=== PATIENT | female | born 1955 | race Asian ===

== ENCOUNTER → 2018-11-04 09:02 | Outpatient (CLI) | payer OTHER, SELFPAY ==
--- NOTE | 2018-11-04 09:04 | DI.MG.S_ITS ---
UNILATERAL LEFT DIGITAL DIAGNOSTIC MAMMOGRAM 3D/2D: 11/04/2018 CLINICAL: Left breast sensation notes at lumpectomy site. Personal history of breast cancer. Comparison is made to exams dated: 03/12/2018 mammogram - [facility], 11/08/2015 mammogram, and 04/29/2013 mammogram - [facility]. There are scattered fibroglandular elements in left breast. There is stable postsurgical scarring in the upper outer left breast at middle to posterior depth. No other significant masses, calcifications, or other findings are seen in the breast. IMPRESSION: INCOMPLETE: NEEDS ADDITIONAL IMAGING EVALUATION Stable postsurgical scarring in the upper outer left breast at middle to posterior depth. A targeted ultrasound is recommended for further evaluation. This exam was interpreted at Station ID: [id number]. NOTE: For mammograms, a report in lay terms will be sent to the patient. Approximately 15% of breast malignancies will not be visualized mammographically. In the management of a palpable breast mass, a negative mammogram must not discourage biopsy of a clinically suspicious lesion. Electronically Signed By: Wilfrido Willard M.D. ecl/:11/05/2018 08:08:04 Entry: - 11/05/2018 08:08:04 letter sent: Need Ultrasound ACR BI-RADS Category 0: Incomplete [id number]
== END ==
PROVIDERS: PCP Family Medicine; Visit Provider Family Medicine
DX: R92.8 Other abnormal and inconclusive findings on diagnostic imaging of breast (principal); N64.4 Mastodynia; Z85.3 Personal history of malignant neoplasm of breast
CPT/HCPCS: 77065; G0279

== ENCOUNTER → 2019-01-01 12:15 | Outpatient (CLI) | payer OTHER, SELFPAY ==
--- NOTE | 2019-01-01 12:23 | DI.US.S_ITS ---
ULTRASOUND OF LEFT BREAST: 01/01/2019 CLINICAL: Left breast lumpectomy (2002) site 'sensation' months ago; sensation now gone. Comparison is made to exams dated: 11/04/2018 mammogram, 03/12/2018 mammogram - [facility], 11/08/2015 mammogram, 04/29/2013 mammogram, 04/29/2013 mammogram, and 05/09/2011 mammogram - [facility]. Real-time ultrasound of the left breast was performed on the areas of interest. Vazquez scale images of the real-time examination were reviewed. IMPRESSION: NEGATIVE There is no sonographic evidence of malignancy. There is no mammographic or sonographic abnormality seen in the left breast to correspond with the area of clinical concern, however, clinical followup is recommended. Of note, the patient states the abnormal sensation she previously felt in the left breast in the area of interest has resolved. A 1 year screening mammogram is recommended. This exam was interpreted at Station ID: [id number]. SUMMARY: Electronically Signed By: Pratima menon/:01/01/2019 13:34:03 letter sent: Clinical Evaluation Ultrasound BI-RADS: 1 Negative
== END ==
PROVIDERS: PCP Family Medicine; Visit Provider Family Medicine
DX: R92.8 Other abnormal and inconclusive findings on diagnostic imaging of breast (principal)
CPT/HCPCS: 76642

== ENCOUNTER → 2019-02-13 08:19 | Outpatient (CLI) | payer OTHER, SELFPAY ==
[2019-02-13 08:44] LABS: Add Manual Diff / Slide Review NO; Basophils Absolute Auto 100 /uL (0-100); Basophils Percent Auto 1.2 % (0-2); Eosinophils Absolute Auto 300 /uL (0-450); Eosinophils Percent Auto 6.2 % (2-4); Hemoglobin 14.5 g/dL (12.0-16.0); Lymphocytes Absolute Auto 1700 /uL (1100-4500); Lymphocytes Percent Auto 36.6 % (25-40); Mean Corpuscular HGB Conc 33.1 % (30-36); Mean Corpuscular Hemoglobin 29.2 PG (26-34); Mean Corpuscular Volume 88.5 fL (80-100); Monocytes Absolute Auto 500 /uL (0-900); Monocytes Percent Auto 10.3 % (3-14); Neutrophils Absolute Auto 2100 /uL (1500-7000); Neutrophils Percent Auto 45.7 % (50-75); Platelet Count 504 X10^3/uL (150-400); Red Blood Cell Count 4.97 X10^6/uL (4.0-5.2); Red Cell Distribution Width 13.6 % (11.6-14.8); White Blood Cell Count 4.6 X10^3/uL (4.5-11.0)
[2019-02-13 09:19] LABS: Alanine Aminotransferase 37 IU/L (9-52); Albumin 4.5 g/dL (3.5-5.0); Albumin Globulin Ratio 1.5 (1.0-2.8); Alkaline Phosphatase 55 U/L (38-126); Aspartate Aminotransferase 32 IU/L (14-36); Bilirubin Total 0.6 mg/dL (0.2-1.3); Blood Urea Nitrogen 14 mg/dL (7-17); Calcium 9.8 mg/dL (8.4-10.2); Carbon Dioxide 29 mmol/L (22-32); Chloride 104 mmol/L (98-107); Cholesterol 217 mg/dL (140-199); Estimated Glomerular Filt Rate > 60.0 mL/min (>60); Glucose 102 mg/dL (80-110); HDL Cholesterol 95 mg/dL (40-60); HEMOLYSIS < 15 (0-50); LDL Cholesterol Calculated 109 mg/dL (<100); Potassium 5.2 mmol/L (3.4-5.1); Sodium 140 mmol/L (137-145); Total Protein 7.5 g/dL (6.3-8.2); Triglycerides 66 mg/dL (35-150)
== END ==
PROVIDERS: PCP Family Medicine; Visit Provider Family Medicine
DX: Z00.00 Encounter for general adult medical examination without abnormal findings (principal); Z13.220 Encounter for screening for lipoid disorders
CPT/HCPCS: 36415; 80053; 80061; 85025

== ENCOUNTER 2019-02-26 18:34 | Inpatient (IN) | payer OTHER, SELFPAY ==
[2019-02-26] VITALS (11 sets, daily range): BP systolic 121–155; BP diastolic 72–92; PULSE 87–111; RESP 16–36; TEMP 37.1–38.7; O2SAT 84–97; BMI 22.6
--- NOTE | 2019-02-26 18:50 | DI.RAD.S_ITS ---
PROCEDURE: XR CHEST 1V INDICATIONS: sepsis TECHNIQUE: One view of the chest was acquired. COMPARISON: [facility], , CHEST 1VW (PORTABLE), 09/03/2013, 20:05. FINDINGS: Surgical changes and devices: Surgical clips are redemonstrated in the left chest wall. Lungs and pleura: Lungs are clear. No pleural effusions or pneumothorax. Mediastinum: Mediastinal contours appear normal. Heart size is normal. Bones and chest wall: No suspicious bony lesions. Overlying soft tissues appear unremarkable. IMPRESSION: 1. No acute cardiopulmonary disease. Dictated by: Armando Smith M.D. on 02/26/2019 at 20:47 Approved by: Armando Smith M.D. on 02/26/2019 at 20:48
--- NOTE | 2019-02-26 18:52 | ED.NAVMDI ---
HPI - Nausea/Vomiting/Diarrhea General Chief complaint: Nausea/Vomiting/Diarrhea Stated complaint: Weakness/diarrhea/fever/headache/increased hr Time Seen by Provider: 02/26/19 18:35 Source: patient Mode of arrival: wheelchair Limitations: no limitations History of Present Illness HPI Narrative: 63-year-old female nonsmoker with history of breast cancer presents to the emergency department with a friend in the chief complaint of fever, chills as well as nausea, vomiting and diarrhea for the past 3 days. She has become profoundly weak and also complains of a rapid heart rate. She is dizzy and lightheaded and required multiple people to help to get her out of the car and again up into the cart. She denies any travel any recent antibiotics or exposure to ill persons. MD complaint: nausea, vomiting and diarrhea Onset (ago): day(s) Description of Vomiting: watery Description of Diarrhea: watery Associated Abdominal Pain: No Severity: moderate Quality: cramping and aching Pain Consistency: intermittent Relieving factors: none Exacerbating factors: none Associated symptoms: myalgias, cough, fever/chills, nausea/vomiting, weakness and fatigue Related Data Home Medications Medication Instructions Recorded Confirmed No Known Home Medications 02/26/19 02/26/19 Allergies Allergy/AdvReac Type Severity Reaction Status Date / Time venom-honey bee Allergy Severe swelling, Verified 02/26/19 19:14 [BEE VENOM (HONEY BEE)] redness, shortness of breath Penicillins [PENICILLINS] Allergy Mild RASH Verified 02/26/19 19:14 Review of Systems Review of Systems ROS Unobtainable: All systems reviewed & are unremarkable except as noted in HPI and below Constitutional Reports body ache(s), Denies chills, Reports fever(s), Denies lethargy, Reports poor appetite and Reports weakness Eyes Denies change in vision, Denies eye discharge, Denies irritation and Denies loss of vision ENT Ears, Nose, Mouth, and Throat: Denies change in voice, Denies neck pain and Denies sore throat Cardiovascular Denies chest pain, Denies irregular heart rhythm, Denies lightheadedness, Denies palpitations, Reports dyspnea, Reports dyspnea on exertion and Denies orthopnea Respiratory Reports cough, Reports dyspnea, Reports dyspnea on exertion and Denies wheezing Gastrointestinal Gastrointestinal: Denies abdominal pain, Denies change in bowel habits, Reports diarrhea, Reports nausea and Reports vomiting Genitourinary Denies hematuria, Denies flank pain, Denies urinary incontinence and Denies urinary urgency Musculoskeletal Denies neck pain Integumentary/Breasts Denies pruritus, Denies erythema, Denies rash and Denies wounds Neurologic Denies confusion, Denies loss of vision and Reports weakness Psychiatric Denies anxiety, Denies confusion, Denies depression, Denies homicidal ideation and Denies suicidal ideation Endocrine Denies palpitations Hematologic/Lymphatic Denies easy bruising Allergic/Immunologic Denies wheezing PFSH Family History (Updated 05/15/16 @ 00:00 by Ursula Hicks DO) Father Osteoarthritis, unspecified osteoarthritis type, unspecified site Social History household members: none Smoking Status: Never smoker alcohol intake: current Family History (Updated 05/15/16 @ 00:00 by Ursula Hicks DO) Father Osteoarthritis, unspecified osteoarthritis type, unspecified site Social History household members: none Smoking Status: Never smoker alcohol intake: current Exam Narrative Exam Narrative: GENERAL: 63-year-old female who is obviously very ill, she is in respiratory distress with rapid shallow breathing, a wet sounding cough and requires the help of myself and a nurse to get her out of the car and then into the cart HEAD: Atraumatic. Normocephalic. No temporal or scalp tenderness. EYES: Pupils equal round and reactive. Extraocular motions intact. No scleral icterus. No injection or drainage. ENT: Nose without bleeding, purulent drainage or septal hematoma. Throat without erythema, tonsillar hypertrophy or exudate. Uvula midline. Airway patent. NECK: Trachea midline. No JVD or lymphadenopathy. Supple, nontender, no meningeal signs. CARDIOVASCULAR: Regular rate and rhythm without murmurs, gallops, or rubs. RESPIRATORY: obvious respiratory distress, use of accessory muscles, rhonchi B/L, coarse throughout GASTROINTESTINAL: Abdomen soft, non-tender, nondistended. No hepato-splenomegaly, or palpable masses. No guarding. EXTREMITIES: No clubbing, cyanosis, or edema. No joint tenderness, effusion, or edema noted. BACK: Nontender without deformity or crepitance. No flank tenderness. NEURO: AOx3. SKIN: No rash or erythema. Initial Vital Signs Initial Vital Signs: Vital Signs Respiratory Rate 36 H 02/26/19 18:35 Pulse Oximetry 84 L 02/26/19 18:35 Course Orders Ordered: ED Orders 02/26/19 18:50 XR chest 1V Stat Influenza A and B by PCR Rapid Stat 02/26/19 19:00 Blood Culture Stat 02/26/19 20:20 ABG [Arterial Blood Gas] Stat 02/26/19 20:55 Education, smoking cessation ONGOING 02/26/19 21:40 Lactate 4HR (Lactic Acid Rflx) Stat 02/27/19 05:00 Complete Blood Count AUTO DIFF Routine Comprehensive Metabolic Panel Routine Acetaminophen (Tylenol) 650 mg PO Q6HR PRN PRN Reason: As Needed for Fever/Mild Pain Last Admin: 02/26/19 21:55 Dose: 650 mg Enoxaparin Sodium (Lovenox) 30 mg SUBCUT DAILY SARAH BETH Dextrose/Sodium Chloride (Dextrose 5%-0.45% Ns) 1,000 mls @ 100 mls/hr IV CONT SARAH BETH Last Admin: 02/26/19 21:55 Dose: 100 mls/hr Ibuprofen (Advil) 600 mg PO Q6HR PRN PRN Reason: As Needed for Fever/Mild Pain Ondansetron HCl (Zofran) 4 mg IV Q4HR PRN PRN Reason: Nausea And Vomiting Oseltamivir Phosphate (Tamiflu) 75 mg PO BID SARAH BETH Discontinued Medications Sodium Chloride (Normal Saline 0.9%) 1,470 mls @ 490 mls/hr 30 ml/kg infuse over 3 hr (1470 ml) IV NOW ONE Stop: 02/26/19 21:48 Last Infusion: 02/26/19 21:08 Dose: 0 mls/hr Admin: 02/26/19 19:00 Dose: 490 mls/hr Levofloxacin (Levaquin) 750 mg in 150 mls @ 100 mls/hr IV NOW ONE Stop: 02/26/19 20:24 Last Infusion: 02/26/19 21:09 Dose: 100 mls/hr Admin: 02/26/19 19:19 Dose: 100 mls/hr Ondansetron HCl (Zofran) 4 mg IV NOW ONE Stop: 02/26/19 19:44 Last Admin: 02/26/19 19:44 Dose: 4 mg Oseltamivir Phosphate (Tamiflu) 75 mg PO NOW ONE Stop: 02/26/19 19:45 Last Admin: 02/26/19 20:16 Dose: 75 mg Consultations Consultation #1: Dr. Hicks is happy to accept patient on her service Vital Signs - 8 hr 02/26/19 19:32 02/26/19 20:04 02/26/19 20:33 Temperature Pulse Rate 92 H 92 H 102 H Respiratory Rate 28 H 22 23 Blood Pressure Blood Pressure [Right Arm] 155/81 H 148/79 H 144/86 H Pulse Oximetry 93 91 90 L 02/26/19 21:48 02/26/19 23:25 02/27/19 03:25 Temperature 99.2 F 98.8 F 98.2 F Pulse Rate 97 H 87 77 Respiratory Rate 28 H 16 16 Blood Pressure 150/92 H 121/73 132/78 Blood Pressure [Right Arm] Pulse Oximetry 94 97 97 MDM - Nausea/Vomiting/Diarrhea Lab Data Result diagrams: 02/26/19 17:25 02/26/19 17:25 Lab Results 02/26/19 02/26/19 02/26/19 Range/Units 17:25 17:25 17:25 WBC 9.7 (4.5-11.0) X10^3/uL RBC 4.21 (4.0-5.2) X10^6/uL Hgb 12.7 (12.0-16.0) g/dL Hct 36.5 (36-46) % MCV 86.7 (80-100) fL MCH 30.1 (26-34) PG MCHC 34.7 (30-36) % RDW 13.2 (11.6-14.8) % Plt Count 584 H (150-400) X10^3/uL Neut % (Auto) Not Reportable Lymph % (Auto) Not Reportable Cochran % (Auto) Not Reportable Eos % (Auto) Not Reportable Baso % (Auto) Not Reportable Lymph # (Auto) Not Reportable Cochran # (Auto) Not Reportable Baso # (Auto) Not Reportable Total Counted 100 Seg Neutrophils % 85.0 H (38-70) % Lymphocytes % (Manual) 4.0 L (25-45) % Monocytes % (Manual) 11.0 (2-11) % Neutrophils # (Manual) 8245 H (2095-0154) /uL Smudge Cells 1+ H RBC Morphology See below Acanthocytes (Spur) 1+ H ABG pH (7.35-7.45) ABG pCO2 (35-45) mmHg ABG pO2 (80-100) mmHg ABG HCO3 (22-26) mmol/L ABG Total CO2 (21-31) mmol/L ABG O2 Saturation (95-100) % ABG Base Excess (-2-2) mmol/L FiO2 Sodium 136 L (137-145) mmol/L Potassium 3.8 (3.4-5.1) mmol/L Chloride 100 (98-107) mmol/L Carbon Dioxide 25 (22-32) mmol/L BUN 12 (7-17) mg/dL Creatinine 0.70 (0.52-1.04) mg/dL Estimated GFR > 60.0 (>60) mL/min BUN/Creatinine Ratio 17.1 (6-22) Glucose 189 H (80-110) mg/dL Lactate (0.7-2.1) mmol/L Calcium 8.9 (8.4-10.2) mg/dL Total Bilirubin 2.6 H (0.2-1.3) mg/dL AST 158 H (14-36) IU/L ALT 110 H (9-52) IU/L Alkaline Phosphatase 212 H (38-126) U/L Total Protein 8.2 (6.3-8.2) g/dL Albumin 4.3 (3.5-5.0) g/dL Globulin 3.9 (1.7-4.1) g/dL Albumin/Globulin Ratio 1.1 (1.0-2.8) Procalcitonin 0.79 H (<0.5) ng/mL Influenza A & B (PCR) (Negative) 02/26/19 02/26/19 02/26/19 Range/Units 17:25 18:50 20:20 WBC (4.5-11.0) X10^3/uL RBC (4.0-5.2) X10^6/uL Hgb (12.0-16.0) g/dL Hct (36-46) % MCV (80-100) fL MCH (26-34) PG MCHC (30-36) % RDW (11.6-14.8) % Plt Count (150-400) X10^3/uL Neut % (Auto) Lymph % (Auto) Cochran % (Auto) Eos % (Auto) Baso % (Auto) Lymph # (Auto) Cochran # (Auto) Baso # (Auto) Total Counted Seg Neutrophils % (38-70) % Lymphocytes % (Manual) (25-45) % Monocytes % (Manual) (2-11) % Neutrophils # (Manual) (0524-0498) /uL Smudge Cells RBC Morphology Acanthocytes (Spur) ABG pH 7.40 (7.35-7.45) ABG pCO2 31.7 L (35-45) mmHg ABG pO2 52 L (80-100) mmHg ABG HCO3 20 L (22-26) mmol/L ABG Total CO2 20 L (21-31) mmol/L ABG O2 Saturation 87 L (95-100) % ABG Base Excess -5.0 L (-2-2) mmol/L FiO2 21 Sodium (137-145) mmol/L Potassium (3.4-5.1) mmol/L Chloride (98-107) mmol/L Carbon Dioxide (22-32) mmol/L BUN (7-17) mg/dL Creatinine (0.52-1.04) mg/dL Estimated GFR (>60) mL/min BUN/Creatinine Ratio (6-22) Glucose (80-110) mg/dL Lactate 2.4 H (0.7-2.1) mmol/L Calcium (8.4-10.2) mg/dL Total Bilirubin (0.2-1.3) mg/dL AST (14-36) IU/L ALT (9-52) IU/L Alkaline Phosphatase (38-126) U/L Total Protein (6.3-8.2) g/dL Albumin (3.5-5.0) g/dL Globulin (1.7-4.1) g/dL Albumin/Globulin Ratio (1.0-2.8) Procalcitonin (<0.5) ng/mL Influenza A & B (PCR) Positive, type a H (Negative) 02/26/19 Range/Units 21:40 WBC (4.5-11.0) X10^3/uL RBC (4.0-5.2) X10^6/uL Hgb (12.0-16.0) g/dL Hct (36-46) % MCV (80-100) fL MCH (26-34) PG MCHC (30-36) % RDW (11.6-14.8) % Plt Count (150-400) X10^3/uL Neut % (Auto) Lymph % (Auto) Cochran % (Auto) Eos % (Auto) Baso % (Auto) Lymph # (Auto) Cochran # (Auto) Baso # (Auto) Total Counted Seg Neutrophils % (38-70) % Lymphocytes % (Manual) (25-45) % Monocytes % (Manual) (2-11) % Neutrophils # (Manual) (3725-6605) /uL Smudge Cells RBC Morphology Acanthocytes (Spur) ABG pH (7.35-7.45) ABG pCO2 (35-45) mmHg ABG pO2 (80-100) mmHg ABG HCO3 (22-26) mmol/L ABG Total CO2 (21-31) mmol/L ABG O2 Saturation (95-100) % ABG Base Excess (-2-2) mmol/L FiO2 Sodium (137-145) mmol/L Potassium (3.4-5.1) mmol/L Chloride (98-107) mmol/L Carbon Dioxide (22-32) mmol/L BUN (7-17) mg/dL Creatinine (0.52-1.04) mg/dL Estimated GFR (>60) mL/min BUN/Creatinine Ratio (6-22) Glucose (80-110) mg/dL Lactate 1.2 (0.7-2.1) mmol/L Calcium (8.4-10.2) mg/dL Total Bilirubin (0.2-1.3) mg/dL AST (14-36) IU/L ALT (9-52) IU/L Alkaline Phosphatase (38-126) U/L Total Protein (6.3-8.2) g/dL Albumin (3.5-5.0) g/dL Globulin (1.7-4.1) g/dL Albumin/Globulin Ratio (1.0-2.8) Procalcitonin (<0.5) ng/mL Influenza A & B (PCR) (Negative) ABG Data Attestation: I personally reviewed and interpreted this ABG as follows: Interpretation: hypoxic respiratory failure Imaging Data Chest x-ray: Radiologist's impression: [address] [id number] XRay Report Signed Patient: Meri Coates [facility]#: [id number] : 4Acct:[id number] Age/Sex: 63 / FDate of Service: 02/26/19 Loc: [id number] Accession Number: [id number] Procedure: XR chest 1V Ordering Provider: Saravanan Meade D.O. PROCEDURE: XR CHEST 1V INDICATIONS: sepsis TECHNIQUE: One view of the chest was acquired. COMPARISON: [facility], , CHEST 1VW (PORTABLE), 09/03/2013, 20:05. FINDINGS: Surgical changes and devices: Surgical clips are redemonstrated in the left chest wall. Lungs and pleura: Lungs are clear. No pleural effusions or pneumothorax. Mediastinum: Mediastinal contours appear normal. Heart size is normal. Bones and chest wall: No suspicious bony lesions. Overlying soft tissues appear unremarkable. IMPRESSION: 1. No acute cardiopulmonary disease. Dictated by: Armando Smith M.D. on 02/26/2019 at 20:47 Approved by: Armando Smith M.D. on 02/26/2019 at 20:48 [facility] [place] Narrative Medical decision making narrative: 63-year-old highly functioning female obviously quite ill. She has a positive flu swab and is in respiratory distress. Though her symptoms have been present 3 days we will administer Tamiflu as she is quite ill and will require hospitalization for further evaluation and stabilization of her condition. her liver enzymes and bilirubin are elevated and this is more likely a consequence of the flu with an evidence of abdominal pathology, particularly in the absence of any pain Discharge Plan Departure Patient Disposition: Admitted As Inpatient Clinical Impression: Influenza A Sepsis Qualifiers: Sepsis type: sepsis due to unspecified organism Qualified Code(s): A41.9 - Sepsis, unspecified organism Discharge Date/Time: 02/26/19 21:15 Interventions: ED Discharge Assessment Last Done: 02/26/19 21:11 Admit Date/Time: 02/26/19 20:47 Admit Provider: Ursula Hicks
--- NOTE | 2019-02-26 18:55 | ED_ITS ---
HPI - Nausea/Vomiting/Diarrhea General Chief complaint: Nausea/Vomiting/Diarrhea Stated complaint: Weakness/diarrhea/fever/headache/increased hr Time Seen by Provider: 02/26/19 18:35 Source: patient Mode of arrival: wheelchair Limitations: no limitations History of Present Illness HPI Narrative: 63-year-old female nonsmoker with history of breast cancer presents to the emergency department with a friend in the chief complaint of fever, chills as well as nausea, vomiting and diarrhea for the past 3 days. She has become profoundly weak and also complains of a rapid heart rate. She is dizzy and lightheaded and required multiple people to help to get her out of the car and again up into the cart. She denies any travel any recent antibiotics or exposure to ill persons. MD complaint: nausea, vomiting and diarrhea Onset (ago): day(s) Description of Vomiting: watery Description of Diarrhea: watery Associated Abdominal Pain: No Severity: moderate Quality: cramping and aching Pain Consistency: intermittent Relieving factors: none Exacerbating factors: none Associated symptoms: myalgias, cough, fever/chills, nausea/vomiting, weakness and fatigue Related Data Home Medications Medication Instructions Recorded Confirmed No Known Home Medications 02/26/19 02/26/19 Allergies Allergy/AdvReac Type Severity Reaction Status Date / Time venom-honey bee Allergy Severe swelling, Verified 02/26/19 19:14 [BEE VENOM (HONEY BEE)] redness, shortness of breath Penicillins [PENICILLINS] Allergy Mild RASH Verified 02/26/19 19:14 Review of Systems Review of Systems ROS Unobtainable: All systems reviewed & are unremarkable except as noted in HPI and below Constitutional Reports body ache(s), Denies chills, Reports fever(s), Denies lethargy, Reports poor appetite and Reports weakness Eyes Denies change in vision, Denies eye discharge, Denies irritation and Denies loss of vision ENT Ears, Nose, Mouth, and Throat: Denies change in voice, Denies neck pain and Denies sore throat Cardiovascular Denies chest pain, Denies irregular heart rhythm, Denies lightheadedness, Denies palpitations, Reports dyspnea, Reports dyspnea on exertion and Denies orthopnea Respiratory Reports cough, Reports dyspnea, Reports dyspnea on exertion and Denies wheezing Gastrointestinal Gastrointestinal: Denies abdominal pain, Denies change in bowel habits, Reports diarrhea, Reports nausea and Reports vomiting Genitourinary Denies hematuria, Denies flank pain, Denies urinary incontinence and Denies urinary urgency Musculoskeletal Denies neck pain Integumentary/Breasts Denies pruritus, Denies erythema, Denies rash and Denies wounds Neurologic Denies confusion, Denies loss of vision and Reports weakness Psychiatric Denies anxiety, Denies confusion, Denies depression, Denies homicidal ideation and Denies suicidal ideation Endocrine Denies palpitations Hematologic/Lymphatic Denies easy bruising Allergic/Immunologic Denies wheezing PFSH Family History (Updated 05/15/16 @ 00:00 by Ursula Hicks DO) Father Osteoarthritis, unspecified osteoarthritis type, unspecified site Social History household members: none Smoking Status: Never smoker alcohol intake: current Family History (Updated 05/15/16 @ 00:00 by Ursula Hicks DO) Father Osteoarthritis, unspecified osteoarthritis type, unspecified site Social History household members: none Smoking Status: Never smoker alcohol intake: current Exam Narrative Exam Narrative: GENERAL: 63-year-old female who is obviously very ill, she is in respiratory distress with rapid shallow breathing, a wet sounding cough and requires the help of myself and a nurse to get her out of the car and then into the cart HEAD: Atraumatic. Normocephalic. No temporal or scalp tenderness. EYES: Pupils equal round and reactive. Extraocular motions intact. No scleral icterus. No injection or drainage. ENT: Nose without bleeding, purulent drainage or septal hematoma. Throat without erythema, tonsillar hypertrophy or exudate. Uvula midline. Airway patent. NECK: Trachea midline. No JVD or lymphadenopathy. Supple, nontender, no meningeal signs. CARDIOVASCULAR: Regular rate and rhythm without murmurs, gallops, or rubs. RESPIRATORY: obvious respiratory distress, use of accessory muscles, rhonchi B/L, coarse throughout GASTROINTESTINAL: Abdomen soft, non-tender, nondistended. No hepato- splenomegaly, or palpable masses. No guarding. EXTREMITIES: No clubbing, cyanosis, or edema. No joint tenderness, effusion, or edema noted. BACK: Nontender without deformity or crepitance. No flank tenderness. NEURO: AOx3. SKIN: No rash or erythema. Initial Vital Signs Initial Vital Signs: Vital Signs Respiratory Rate 36 H 02/26/19 18:35 Pulse Oximetry 84 L 02/26/19 18:35 Course Orders Ordered: ED Orders 02/26/19 18:50 XR chest 1V Stat Influenza A and B by PCR Rapid Stat 02/26/19 19:00 Blood Culture Stat 02/26/19 20:20 ABG [Arterial Blood Gas] Stat 02/26/19 20:55 Education, smoking cessation ONGOING 02/26/19 21:40 Lactate 4HR (Lactic Acid Rflx) Stat 02/27/19 05:00 Complete Blood Count AUTO DIFF Routine Comprehensive Metabolic Panel Routine Acetaminophen (Tylenol) 650 mg PO Q6HR PRN PRN Reason: As Needed for Fever/Mild Pain Last Admin: 02/26/19 21:55 Dose: 650 mg Enoxaparin Sodium (Lovenox) 30 mg SUBCUT DAILY SARAH BETH Dextrose/Sodium Chloride (Dextrose 5%-0.45% Ns) 1,000 mls @ 100 mls/hr IV CONT SARAH BETH Last Admin: 02/26/19 21:55 Dose: 100 mls/hr Ibuprofen (Advil) 600 mg PO Q6HR PRN PRN Reason: As Needed for Fever/Mild Pain Ondansetron HCl (Zofran) 4 mg IV Q4HR PRN PRN Reason: Nausea And Vomiting Oseltamivir Phosphate (Tamiflu) 75 mg PO BID SARAH BETH Discontinued Medications Sodium Chloride (Normal Saline 0.9%) 1,470 mls @ 490 mls/hr 30 ml/kg infuse over 3 hr (1470 ml) IV NOW ONE Stop: 02/26/19 21:48 Last Infusion: 02/26/19 21:08 Dose: 0 mls/hr Admin: 02/26/19 19:00 Dose: 490 mls/hr Levofloxacin (Levaquin) 750 mg in 150 mls @ 100 mls/hr IV NOW ONE Stop: 02/26/19 20:24 Last Infusion: 02/26/19 21:09 Dose: 100 mls/hr Admin: 02/26/19 19:19 Dose: 100 mls/hr Ondansetron HCl (Zofran) 4 mg IV NOW ONE Stop: 02/26/19 19:44 Last Admin: 02/26/19 19:44 Dose: 4 mg Oseltamivir Phosphate (Tamiflu) 75 mg PO NOW ONE Stop: 02/26/19 19:45 Last Admin: 02/26/19 20:16 Dose: 75 mg Consultations Consultation #1: Dr. Hicks is happy to accept patient on her service Vital Signs - 8 hr 02/26/19 19:32 02/26/19 20:04 02/26/19 20:33 Temperature Pulse Rate 92 H 92 H 102 H Respiratory Rate 28 H 22 23 Blood Pressure Blood Pressure [Right Arm] 155/81 H 148/79 H 144/86 H Pulse Oximetry 93 91 90 L 02/26/19 21:48 02/26/19 23:25 02/27/19 03:25 Temperature 99.2 F 98.8 F 98.2 F Pulse Rate 97 H 87 77 Respiratory Rate 28 H 16 16 Blood Pressure 150/92 H 121/73 132/78 Blood Pressure [Right Arm] Pulse Oximetry 94 97 97 MDM - Nausea/Vomiting/Diarrhea Lab Data Result diagrams: 02/26/19 17:25 02/26/19 17:25 Lab Results 02/26/19 02/26/19 02/26/19 Range/Units 17:25 17:25 17:25 WBC 9.7 (4.5-11.0) X10^3/uL RBC 4.21 (4.0-5.2) X10^6/uL Hgb 12.7 (12.0-16.0) g/dL Hct 36.5 (36-46) % MCV 86.7 (80-100) fL MCH 30.1 (26-34) PG MCHC 34.7 (30-36) % RDW 13.2 (11.6-14.8) % Plt Count 584 H (150-400) X10^3/uL Neut % (Auto) Not Reportable Lymph % (Auto) Not Reportable [place] % (Auto) Not Reportable Eos % (Auto) Not Reportable Baso % (Auto) Not Reportable Lymph # (Auto) Not Reportable [place] # (Auto) Not Reportable Baso # (Auto) Not Reportable Total Counted 100 Seg Neutrophils % 85.0 H (38-70) % Lymphocytes % (Manual) 4.0 L (25-45) % Monocytes % (Manual) 11.0 (2-11) % Neutrophils # (Manual) 8245 H (5618-7262) /uL Smudge Cells 1+ H RBC Morphology See below Acanthocytes (Spur) 1+ H ABG pH (7.35-7.45) ABG pCO2 (35-45) mmHg ABG pO2 (80-100) mmHg ABG HCO3 (22-26) mmol/L ABG Total CO2 (21-31) mmol/L ABG O2 Saturation (95-100) % ABG Base Excess (-2-2) mmol/L FiO2 Sodium 136 L (137-145) mmol/L Potassium 3.8 (3.4-5.1) mmol/L Chloride 100 (98-107) mmol/L Carbon Dioxide 25 (22-32) mmol/L BUN 12 (7-17) mg/dL Creatinine 0.70 (0.52-1.04) mg/dL Estimated GFR > 60.0 (>60) mL/min BUN/Creatinine Ratio 17.1 (6-22) Glucose 189 H (80-110) mg/dL Lactate (0.7-2.1) mmol/L Calcium 8.9 (8.4-10.2) mg/dL Total Bilirubin 2.6 H (0.2-1.3) mg/dL AST 158 H (14-36) IU/L ALT 110 H (9-52) IU/L Alkaline Phosphatase 212 H (38-126) U/L Total Protein 8.2 (6.3-8.2) g/dL Albumin 4.3 (3.5-5.0) g/dL Globulin 3.9 (1.7-4.1) g/dL Albumin/Globulin Ratio 1.1 (1.0-2.8) Procalcitonin 0.79 H (<0.5) ng/mL Influenza A & B (PCR) (Negative) 02/26/19 02/26/19 02/26/19 Range/Units 17:25 18:50 20:20 WBC (4.5-11.0) X10^3/uL RBC (4.0-5.2) X10^6/uL Hgb (12.0-16.0) g/dL Hct (36-46) % MCV (80-100) fL MCH (26-34) PG MCHC (30-36) % RDW (11.6-14.8) % Plt Count (150-400) X10^3/uL Neut % (Auto) Lymph % (Auto) [place] % (Auto) Eos % (Auto) Baso % (Auto) Lymph # (Auto) [place] # (Auto) Baso # (Auto) Total Counted Seg Neutrophils % (38-70) % Lymphocytes % (Manual) (25-45) % Monocytes % (Manual) (2-11) % Neutrophils # (Manual) (4432-7674) /uL Smudge Cells RBC Morphology Acanthocytes (Spur) ABG pH 7.40 (7.35-7.45) ABG pCO2 31.7 L (35-45) mmHg ABG pO2 52 L (80-100) mmHg ABG HCO3 20 L (22-26) mmol/L ABG Total CO2 20 L (21-31) mmol/L ABG O2 Saturation 87 L (95-100) % ABG Base Excess -5.0 L (-2-2) mmol/L FiO2 21 Sodium (137-145) mmol/L Potassium (3.4-5.1) mmol/L Chloride (98-107) mmol/L Carbon Dioxide (22-32) mmol/L BUN (7-17) mg/dL Creatinine (0.52-1.04) mg/dL Estimated GFR (>60) mL/min BUN/Creatinine Ratio (6-22) Glucose (80-110) mg/dL Lactate 2.4 H (0.7-2.1) mmol/L Calcium (8.4-10.2) mg/dL Total Bilirubin (0.2-1.3) mg/dL AST (14-36) IU/L ALT (9-52) IU/L Alkaline Phosphatase (38-126) U/L Total Protein (6.3-8.2) g/dL Albumin (3.5-5.0) g/dL Globulin (1.7-4.1) g/dL Albumin/Globulin Ratio (1.0-2.8) Procalcitonin (<0.5) ng/mL Influenza A & B (PCR) Positive, type a H (Negative) 02/26/19 Range/Units 21:40 WBC (4.5-11.0) X10^3/uL RBC (4.0-5.2) X10^6/uL Hgb (12.0-16.0) g/dL Hct (36-46) % MCV (80-100) fL MCH (26-34) PG MCHC (30-36) % RDW (11.6-14.8) % Plt Count (150-400) X10^3/uL Neut % (Auto) Lymph % (Auto) [place] % (Auto) Eos % (Auto) Baso % (Auto) Lymph # (Auto) [place] # (Auto) Baso # (Auto) Total Counted Seg Neutrophils % (38-70) % Lymphocytes % (Manual) (25-45) % Monocytes % (Manual) (2-11) % Neutrophils # (Manual) (3079-4596) /uL Smudge Cells RBC Morphology Acanthocytes (Spur) ABG pH (7.35-7.45) ABG pCO2 (35-45) mmHg ABG pO2 (80-100) mmHg ABG HCO3 (22-26) mmol/L ABG Total CO2 (21-31) mmol/L ABG O2 Saturation (95-100) % ABG Base Excess (-2-2) mmol/L FiO2 Sodium (137-145) mmol/L Potassium (3.4-5.1) mmol/L Chloride (98-107) mmol/L Carbon Dioxide (22-32) mmol/L BUN (7-17) mg/dL Creatinine (0.52-1.04) mg/dL Estimated GFR (>60) mL/min BUN/Creatinine Ratio (6-22) Glucose (80-110) mg/dL Lactate 1.2 (0.7-2.1) mmol/L Calcium (8.4-10.2) mg/dL Total Bilirubin (0.2-1.3) mg/dL AST (14-36) IU/L ALT (9-52) IU/L Alkaline Phosphatase (38-126) U/L Total Protein (6.3-8.2) g/dL Albumin (3.5-5.0) g/dL Globulin (1.7-4.1) g/dL Albumin/Globulin Ratio (1.0-2.8) Procalcitonin (<0.5) ng/mL Influenza A & B (PCR) (Negative) ABG Data Attestation: I personally reviewed and interpreted this ABG as follows: Interpretation: hypoxic respiratory failure Imaging Data Chest x-ray: Radiologist's impression: [address] [address] XRay Report Signed Patient: Meri Coates [facility]#: [id number] : 4Acct:[id number] Age/Sex: 63 / FDate of Service: 02/26/19 Loc: VI921-5 Accession Number: [id number] Procedure: XR chest 1V Ordering Provider: Saravanan Meade D.O. PROCEDURE: XR CHEST 1V INDICATIONS: sepsis TECHNIQUE: One view of the chest was acquired. COMPARISON: [facility], , CHEST 1VW (PORTABLE), 09/03/2013, 20:05. FINDINGS: Surgical changes and devices: Surgical clips are redemonstrated in the left chest wall. Lungs and pleura: Lungs are clear. No pleural effusions or pneumothorax. Mediastinum: Mediastinal contours appear normal. Heart size is normal. Bones and chest wall: No suspicious bony lesions. Overlying soft tissues appear unremarkable. IMPRESSION: 1. No acute cardiopulmonary disease. Dictated by: Armando Smith M.D. on 02/26/2019 at 20:47 Approved by: Armando Smith M.D. on 02/26/2019 at 20:48 [facility] Narrative Medical decision making narrative: 63-year-old highly functioning female obviously quite ill. She has a positive flu swab and is in respiratory distress. Though her symptoms have been present 3 days we will administer Tamiflu as she is quite ill and will require hospitalization for further evaluation and stabilization of her condition. her liver enzymes and bilirubin are elevated and this is more likely a consequence of the flu with an evidence of abdominal pathology, particularly in the absence of any pain Discharge Plan Departure Patient Disposition: Admitted As Inpatient Clinical Impression: Influenza A Sepsis Qualifiers: Sepsis type: sepsis due to unspecified organism Qualified Code(s): A41.9 - Sepsis, unspecified organism Discharge Date/Time: 02/26/19 21:15 Interventions: ED Discharge Assessment Last Done: 02/26/19 21:11 Admit Date/Time: 02/26/19 20:47 Admit Provider: Ursula Hicks
[2019-02-26] MEDS: SODIUM CHLORIDE 0.9% 490 ML IV (19:00)
[2019-02-26] MEDS: levoFLOXacin 750 MG/150 ML PIGGYBACK 100 MG IV (19:19)
[2019-02-26] MEDS: ONDANSETRON 4 MG/2 ML INJ IV (19:44)
[2019-02-26 19:49] LABS: Alanine Aminotransferase 110 IU/L (9-52); Albumin 4.3 g/dL (3.5-5.0); Albumin Globulin Ratio 1.1 (1.0-2.8); Alkaline Phosphatase 212 U/L (38-126); Aspartate Aminotransferase 158 IU/L (14-36); BUN Creatinine Ratio 17.1 (6-22); Bilirubin Total 2.6 mg/dL (0.2-1.3); Blood Urea Nitrogen 12 mg/dL (7-17); Calcium 8.9 mg/dL (8.4-10.2); Carbon Dioxide 25 mmol/L (22-32); Chloride 100 mmol/L (98-107); Estimated Glomerular Filt Rate > 60.0 mL/min (>60); Globulin 3.9 g/dL (1.7-4.1); Glucose 189 mg/dL (80-110); HEMOLYSIS < 15 (0-50); Potassium 3.8 mmol/L (3.4-5.1); Sodium 136 mmol/L (137-145); Total Protein 8.2 g/dL (6.3-8.2)
[2019-02-26 19:52] LABS: Lactate (Lactic Acid) 2.4 mmol/L (0.7-2.1)
[2019-02-26 20:08] LABS: Hematocrit 36.5 % (36-46); Hemoglobin 12.7 g/dL (12.0-16.0); Mean Corpuscular HGB Conc 34.7 % (30-36); Mean Corpuscular Hemoglobin 30.1 PG (26-34); Mean Corpuscular Volume 86.7 fL (80-100); Platelet Count 584 X10^3/uL (150-400); Red Blood Cell Count 4.21 X10^6/uL (4.0-5.2); Red Cell Distribution Width 13.2 % (11.6-14.8); White Blood Cell Count 9.7 X10^3/uL (4.5-11.0)
[2019-02-26 20:09] LABS: Procalcitonin 0.79 ng/mL (<0.5)
[2019-02-26 20:10] LABS: Add Manual Diff / Slide Review YES
[2019-02-26] MEDS: OSELTAMIVIR 75 MG CAPSULE PO (20:16)
--- NOTE | 2019-02-26 20:25 | PC.NURSE ---
dr requesting room air sat. pt desating to 88% while off oxygen.
[2019-02-26 20:48] LABS: Fractionated Inspired Oxygen 21; HCO3 ABG 20 mmol/L (22-26); Oxygen Saturation ABG 87 % (95-100); PCO2 ABG 31.7 mmHg (35-45); PO2 ABG 52 mmHg (80-100); TCO2 ABG 20 mmol/L (21-31)
[2019-02-26 21:18] LABS: Neutrophils Absolute Manual 8245 /uL (3000-5900); Smudge Cells 1+; Total Cells Counted 100
[2019-02-26 21:19] LABS: Acanthocytes 1+
[2019-02-26 21:29] LABS: Reflexed Lactate in 2 Hours Y
[2019-02-26] MEDS: DEXTROSE 5%-0.45% NS 1,000 ML 100 ML IV (21:55)
[2019-02-26] MEDS: ACETAMINOPHEN 325 MG TABLET 650 MG PO (21:55)
[2019-02-26 21:59] LABS: Lactate 2HR (Lactic Acid Rflx) 1.2 mmol/L (0.7-2.1)
--- NOTE | 2019-02-26 22:06 | PC.NURSE ---
2145 - Pt to room from ER. SBA to bed. Impulsive movement with unsteady gait. 4L NC, reports rattling chest and headache. APAP given, Oriented to room and routine. Educated to safety and call light use. Bed alarm on.
[2019-02-27] VITALS (11 sets, daily range): BP systolic 108–133; BP diastolic 77–91; PULSE 76–98; RESP 16–20; TEMP 36.8–39; O2SAT 94–97
[2019-02-27 06:19] LABS: Alanine Aminotransferase 81 IU/L (9-52); Albumin 3.4 g/dL (3.5-5.0); Alkaline Phosphatase 174 U/L (38-126); Aspartate Aminotransferase 76 IU/L (14-36); Blood Urea Nitrogen 8 mg/dL (7-17); Calcium 7.6 mg/dL (8.4-10.2); Carbon Dioxide 25 mmol/L (22-32); Chloride 103 mmol/L (98-107); Estimated Glomerular Filt Rate > 60.0 mL/min (>60); Globulin 3.3 g/dL (1.7-4.1); Glucose 152 mg/dL (80-110); HEMOLYSIS 21 (0-50); Hematocrit 34.9 % (36-46); Mean Corpuscular HGB Conc 34.4 % (30-36); Mean Corpuscular Hemoglobin 29.7 PG (26-34); Mean Corpuscular Volume 86.4 fL (80-100); Platelet Count 417 X10^3/uL (150-400); Potassium 3.6 mmol/L (3.4-5.1); Red Blood Cell Count 4.04 X10^6/uL (4.0-5.2); Red Cell Distribution Width 13.1 % (11.6-14.8); Sodium 134 mmol/L (137-145); Total Protein 6.7 g/dL (6.3-8.2); White Blood Cell Count 10.9 X10^3/uL (4.5-11.0)
[2019-02-27 06:30] LABS: Add Manual Diff / Slide Review YES
[2019-02-27] MEDS: ACETAMINOPHEN 325 MG TABLET 650 MG PO ×2 (06:44→20:22)
[2019-02-27] MEDS: DEXTROSE 5%-0.45% NS 1,000 ML 100 ML IV (06:47)
[2019-02-27 07:01] LABS: Neutrophils Absolute Manual 8393 /uL (3000-5900); Total Cells Counted 100
[2019-02-27 07:02] LABS: Platelet Estimate Increased on smear; RBC Morphology Normal Morphology
--- NOTE | 2019-02-27 08:29 | PM.HP.1 ---
History of Present Illness Date Patient Seen: 02/27/19 Time Patient Seen: 08:00 Chief complaint: Weakness/diarrhea/fever/headache/increased hr Narrative: Patient is a 63 yo healthy female who presented to the ED last night with weakness, shortness of breath and diarrhea and found to have influenza A. She had been feeling ill for about 3 days when she was unable to ambulate and called friends to bring her in to the emergency department. This morning she is feeling improved. Has decreased oxygen requirement. Tells me that she feels weak and short of breath when she goes to the bathroom. Is coughing but doesn't want her cough suppressed, feels it's best to get it out. Tells me she is hungry and ready for breakfast. Patient History Medical History (Updated 02/27/19 @ 08:39 by Ursula Hicks DO) History of malignant neoplasm of female breast Osteopenia (Chronic 05/15/16) Surgical History (Updated 02/27/19 @ 08:43 by Ursula Hicks DO) History of bunionectomy of right great toe (Acute) History of lumpectomy of left breast (Acute) Family History (Updated 05/15/16 @ 00:00 by Ursula Hicks DO) Father Osteoarthritis, unspecified osteoarthritis type, unspecified site Social History household members: none Smoking Status: Never smoker alcohol intake: current Family & Social History Family History (Updated 05/15/16 @ 00:00 by Ursula Hicks DO) Father Osteoarthritis, unspecified osteoarthritis type, unspecified site Social History: household members none Prior Living Arrangements House Safety & Behavioral: Feels Safe in Current Yes Environment Been Physically Hurt or No Threatened By a Person Suicidal Ideation Description None Tobacco & Substance use: Smoking Status Never smoker alcohol intake current alcohol intake frequency holiday/special occasion Substance Use Type does not use Meds Home Medications Medication Instructions Recorded Confirmed Type No Known Home Medications 02/26/19 02/26/19 History Allergies Allergy/AdvReac Type Severity Reaction Status Date / Time venom-honey bee Allergy Severe swelling, Verified 02/26/19 19:14 [BEE VENOM (HONEY BEE)] redness, shortness of breath Penicillins [PENICILLINS] Allergy Mild RASH Verified 02/26/19 19:14 Review of Systems Review of Systems All systems reviewed & are unremarkable except as noted in HPI and below Exam Vital Signs (past 8 hours): - 02/27/19 01:00 02/27/19 03:25 02/27/19 08:19 Temperature 98.2 F 98.7 F Pulse Rate 77 76 Respiratory Rate 16 20 Blood Pressure 132/78 122/77 Pulse Oximetry 97 97 97 Oxygen Delivery Method Nasal Cannula Oxygen Flow Rate 4 Narrative Exam Narrative: General: Well-developed, well-nourished, female, no acute distress. Heart: Regular rate and rhythm, no murmurs appreciated Lungs: Inspiratory crackles, no wheezes Abd: BS+, soft, nontender, nondistended, no rebound, no guarding Extremities: Warm and well perfused, no edema Objective Labs Result Diagrams: 02/27/19 05:40 02/27/19 05:40 Labs: Laboratory Results - last 24 hr 02/26/19 02/26/19 02/26/19 17:25 17:25 17:25 WBC 9.7 RBC 4.21 Hgb 12.7 Hct 36.5 MCV 86.7 MCH 30.1 MCHC 34.7 RDW 13.2 Plt Count 584 H Neut % (Auto) Not Reportable Lymph % (Auto) Not Reportable [place] % (Auto) Not Reportable Eos % (Auto) Not Reportable Baso % (Auto) Not Reportable Lymph # (Auto) Not Reportable [place] # (Auto) Not Reportable Baso # (Auto) Not Reportable Total Counted 100 Seg Neutrophils % 85.0 H Band Neutrophils % Lymphocytes % (Manual) 4.0 L Atypical Lymphs % Monocytes % (Manual) 11.0 Metamyelocytes % Neutrophils # (Manual) 8245 H Smudge Cells 1+ H Platelet Estimate RBC Morphology See below Acanthocytes (Spur) 1+ H ABG pH ABG pCO2 ABG pO2 ABG HCO3 ABG Total CO2 ABG O2 Saturation ABG Base Excess FiO2 Sodium 136 L Potassium 3.8 Chloride 100 Carbon Dioxide 25 BUN 12 Creatinine 0.70 Estimated GFR > 60.0 BUN/Creatinine Ratio 17.1 Glucose 189 H Lactate Calcium 8.9 Total Bilirubin 2.6 H AST 158 H ALT 110 H Alkaline Phosphatase 212 H Total Protein 8.2 Albumin 4.3 Globulin 3.9 Albumin/Globulin Ratio 1.1 Procalcitonin 0.79 H Influenza A & B (PCR) 02/26/19 02/26/19 02/26/19 17:25 18:50 20:20 WBC RBC Hgb Hct MCV MCH MCHC RDW Plt Count Neut % (Auto) Lymph % (Auto) [place] % (Auto) Eos % (Auto) Baso % (Auto) Lymph # (Auto) [place] # (Auto) Baso # (Auto) Total Counted Seg Neutrophils % Band Neutrophils % Lymphocytes % (Manual) Atypical Lymphs % Monocytes % (Manual) Metamyelocytes % Neutrophils # (Manual) Smudge Cells Platelet Estimate RBC Morphology Acanthocytes (Spur) ABG pH 7.40 ABG pCO2 31.7 L ABG pO2 52 L ABG HCO3 20 L ABG Total CO2 20 L ABG O2 Saturation 87 L ABG Base Excess -5.0 L FiO2 21 Sodium Potassium Chloride Carbon Dioxide BUN Creatinine Estimated GFR BUN/Creatinine Ratio Glucose Lactate 2.4 H Calcium Total Bilirubin AST ALT Alkaline Phosphatase Total Protein Albumin Globulin Albumin/Globulin Ratio Procalcitonin Influenza A & B (PCR) Positive, type a H 02/26/19 02/27/19 02/27/19 21:40 05:40 05:40 WBC 10.9 RBC 4.04 Hgb 12.0 Hct 34.9 L MCV 86.4 MCH 29.7 MCHC 34.4 RDW 13.1 Plt Count 417 H Neut % (Auto) Not Reportable Lymph % (Auto) Not Reportable [place] % (Auto) Not Reportable Eos % (Auto) Not Reportable Baso % (Auto) Not Reportable Lymph # (Auto) Not Reportable [place] # (Auto) Not Reportable Baso # (Auto) Not Reportable Total Counted 100 Seg Neutrophils % 46.0 Band Neutrophils % 31.0 H Lymphocytes % (Manual) 11.0 L Atypical Lymphs % 2.0 H Monocytes % (Manual) 9.0 Metamyelocytes % 1.0 H Neutrophils # (Manual) 8393 H Smudge Cells Platelet Estimate Increased on smear RBC Morphology Normal morphology Acanthocytes (Spur) ABG pH ABG pCO2 ABG pO2 ABG HCO3 ABG Total CO2 ABG O2 Saturation ABG Base Excess FiO2 Sodium 134 L Potassium 3.6 Chloride 103 Carbon Dioxide 25 BUN 8 Creatinine 0.50 L Estimated GFR > 60.0 BUN/Creatinine Ratio 16.0 Glucose 152 H Lactate 1.2 Calcium 7.6 L Total Bilirubin 2.0 H AST 76 H ALT 81 H Alkaline Phosphatase 174 H Total Protein 6.7 Albumin 3.4 L Globulin 3.3 Albumin/Globulin Ratio 1.0 Procalcitonin Influenza A & B (PCR) Assessment & Plan Assessment & Plan narrative: 63 yo female with sepsis (tachycardia, transaminitis with elevation of bilirubin, fever, increased respirations) from influenza infection with good response to fluid resuscitation with decrease in lactate and tachycardia. Concern for a bacterial pneumonia however chest xray was clear and she has significantly improved with just resuscitation. Acute hypoxic respiratory failure from influenza infection - continue tamiflu - continue supplemental oxygen Transaminitis likely from influenza with improvement over night. - monitor enzymes Dehydration from influenza - continue fluids until taking good PO Code status: DNR, POLST on file DVT prophylaxis: lovenox at the 30 mg dose (104 lb) Patient will be returning home after her respiratory status improves which will require at least 2 midnights of care
[2019-02-27] MEDS: OSELTAMIVIR 75 MG CAPSULE PO ×2 (08:50→20:18)
[2019-02-27] MEDS: ENOXAPARIN 30 MG/0.3 ML SYRINGE SUBCUT (08:51)
--- NOTE | 2019-02-27 12:20 | CM.IDA ---
Addendum entered by CHUCK Young 02/27/19 12:40: In addition: Pt has tremors, shakiness at rest (?) Friend Kiki says this is normal for pt, especially when stressed, but she has never understood where they come from? PT eval might assist in clarification of DC needs when pt medically appropriate for this. Original Note: Initial DCP Assessment Note: Pt is a 63 yo [place] resident, presents w/ severe weakness, malaise, fever and dx w/ Flu A. Payer: [facility]. Reviewed chart. Met w/pt this morning in , explained role; also present was sister in law Homa and pt's friend Kiki. Pt quite talkative this morning and forthcoming, she is talking about not having had children w/her late spouse and reasons for this. She also discusses her infatuation w/ her late . Pt's Robbie in September 2018. Pt asks about home health and states she does not want to be a burden on her friends. Explained the difference between caregivers in the home and home health service. Pt requests home health. Pt needing to use the BR, so this ELEVATOR TECHNICIAN stepped out w/ CARLA and friend Kiki. Kiki concerned about pt; she explains there have been changes over the last few months in pt's ability to censor information she shares. Historically, pt has been very private w/information. She now tends to share intimate details w/Kiki and Kiki's spouse about herself, thoughts, family history, etc., head to mouth Kiki wonders if pt would benefit from a neurological referral? Kiki reiterates she is worried about pt and would like pt's PCP to be aware of this. Re: functional baseline, pt very indp. and active. She enjoys outdoor activities like biking, kayaking and hiking. Reassured pt's friends that this ELEVATOR TECHNICIAN would work on a safe DC plan w/pt and Dr Hicks. This also might be a good time to discuss grieving/counseling resources w/pt. Following closely. CHUCK Young Discharge Planning/Care Management CM Discharge Assessment Start: 02/27/19 12:15 Freq: Status: Active Protocol: Document 02/27/19 12:15 WARD (Rec: 02/27/19 12:20 WARD [id number]) Discharge Planning Assessment Assigned Trade Mark Examiner CHUCK Rodríguez DPOA/Assigned Designee Name No DPOA, Sister in law Homa , friend Kiki Kennedy Contact Information CARLA- [phone], friend Kiki- [phone] Advance Directives? Yes: pt reports polst form in the glovebox of her car. Advance Directives on File No History Provided By Patient Friend Medical Record Prior Living Arrangements House Household Members none Type of transporation used prior to Drives own vehicle admit Independent with ADL's Yes Is patient alert and oriented? Yes Discharge Plan Home Transportation Arrangement Friends Additional Comment R/O need for HH Whiteboard Updated in Patient Room with Yes name and ext. # of Trade Mark Examiner Review Status In Process
--- NOTE | 2019-02-27 17:02 | PC.NURSE ---
Addendum entered by Nicole Mishra R.N. 02/27/19 22:24: Pt with no further complaints of difficulty breathing. 02 2L nc sats 97%. This health underwriter spoke with Paradise Marks, requesting eval and treat as per Dr. Holm's orders. IV fluids initiated as per order. Pt encouraged to position self in bed to enhance respiratory effort and not allow self to slouch in bed. Pt very conversant with staff; no signs of distress. T 99.4. Original Note: Addendum entered by Nicole Mishra R.N. 02/27/19 20:35: Pt reports having difficulty breathing. Was assisted to reposition in bed so is in more upright position. Room air saturation 93-95% per continuous monitor. No apparent distress. Breath sounds remain unchanged with rub posterior left and new finding faint wheeze left posterior doe. Pt reports feels better with staff in room. Placed pt on 02 @ 2L/min and pt does report feels is breathing better. Axillary temp as pt drinking ice water 102.2--administered tylenol and discussed the above findings with Dr. Holm via telephone. Orders for R.T. to consult and evaluate and per MD, give pt ibuprofen in addition to the tylenol. See emar. Original Note: Pt awake, alert, lying in bed. Denies nausea, denies pain. States occasional cough is not productive. Diminished breath sounds to posterior doe; pleural rub left. Pt moves all extremities independently. States desires to be independent. Encouraged oral fluids as urine is orange in color per THEATER TECHNICIAN report.
[2019-02-27] MEDS: SODIUM CHLORIDE 0.9% FLUSH 10 ML IV (20:18)
[2019-02-27] MEDS: IBUPROFEN 600 MG TABLET PO (20:40)
[2019-02-27] MEDS: SODIUM CHLORIDE 0.45% 1,000 ML 100 ML IV (22:21)
[2019-02-28] VITALS (19 sets, daily range): BP systolic 88–133; BP diastolic 56–82; PULSE 59–86; RESP 16–19; TEMP 36.5–37.1; O2SAT 89–99
--- NOTE | 2019-02-28 | DI.RAD.S_ITS ---
PROCEDURE: XR CHEST 2V INDICATIONS: persistant cough, crackles on exam TECHNIQUE: 2 views of the chest were acquired. COMPARISON: [facility], CR, CHEST 2VW, 03/20/2008, 8:26. [facility], CR, XR CHEST 1V, 02/26/2019, 18:59. FINDINGS: Surgical changes and devices: Surgical clips in the left breast. Lungs and pleura: Patchy opacities have developed in the posterior aspect of the left lung base concerning for aspiration versus pneumonia. Mediastinum: Mediastinal contours are normal. Heart size is normal. Bones and chest wall: No suspicious bony abnormalities. Soft tissues appear unremarkable. IMPRESSION: Posterior left basilar opacities concerning for aspiration versus pneumonia. Dictated by: Megan Ramirez MD, PhD on 02/28/2019 at 10:21 Approved by: Megan Ramirez MD, PhD on 02/28/2019 at 10:23
[2019-02-28 06:24] LABS: Add Manual Diff / Slide Review NO; Basophils Absolute Auto 0 /uL (0-100); Basophils Percent Auto 0.3 % (0-2); Eosinophils Absolute Auto 100 /uL (0-450); Eosinophils Percent Auto 0.7 % (2-4); Hematocrit 36.3 % (36-46); Hemoglobin 12.2 g/dL (12.0-16.0); Lymphocytes Absolute Auto 1100 /uL (1100-4500); Lymphocytes Percent Auto 6.7 % (25-40); Mean Corpuscular HGB Conc 33.5 % (30-36); Mean Corpuscular Hemoglobin 29.1 PG (26-34); Mean Corpuscular Volume 86.7 fL (80-100); Monocytes Absolute Auto 1300 /uL (0-900); Monocytes Percent Auto 7.7 % (3-14); Neutrophils Absolute Auto 14400 /uL (1500-7000); Neutrophils Percent Auto 84.6 % (50-75); Platelet Count 462 X10^3/uL (150-400); Red Blood Cell Count 4.19 X10^6/uL (4.0-5.2); Red Cell Distribution Width 13.1 % (11.6-14.8)
[2019-02-28 06:30] LABS: Alanine Aminotransferase 77 IU/L (9-52); Albumin 3.1 g/dL (3.5-5.0); Alkaline Phosphatase 224 U/L (38-126); Aspartate Aminotransferase 54 IU/L (14-36); BUN Creatinine Ratio 13.8 (6-22); Bilirubin Total 1.5 mg/dL (0.2-1.3); Blood Urea Nitrogen 11 mg/dL (7-17); Carbon Dioxide 25 mmol/L (22-32); Chloride 104 mmol/L (98-107); Estimated Glomerular Filt Rate > 60.0 mL/min (>60); Globulin 3.1 g/dL (1.7-4.1); Glucose 112 mg/dL (80-110); HEMOLYSIS < 15 (0-50); Potassium 3.5 mmol/L (3.4-5.1); Sodium 136 mmol/L (137-145); Total Protein 6.2 g/dL (6.3-8.2)
[2019-02-28 08:31] LABS: Procalcitonin 0.67 ng/mL (<0.5)
[2019-02-28] MEDS: SODIUM CHLORIDE 0.45% 1,000 ML 100 ML IV ×2 (08:33→20:13)
[2019-02-28] MEDS: OSELTAMIVIR 75 MG CAPSULE PO ×2 (08:39→20:52)
[2019-02-28] MEDS: ENOXAPARIN 30 MG/0.3 ML SYRINGE SUBCUT (08:39)
--- NOTE | 2019-02-28 09:11 | P.PN_ITS ---
Subjective Date Patient Seen: 02/28/19 Time Patient Seen: 08:31 Interval history: Patient is sitting up in bed eating a tuna fish sandwich. Tells me that her appetite has returned. Her abdominal muscles are sore from coughing. She was febrile and hypotensive overnight. She tells me that she did not vomit at home. She is very adverse to vomitting and did everything in her power to prevent it. So did not vomit at home. Exam Vital Signs (past 8 hours): - 02/28/19 05:00 02/28/19 07:15 02/28/19 08:35 Temperature 97.7 F Pulse Rate 59 L Respiratory Rate 16 Blood Pressure 113/66 Pulse Oximetry 99 95 96 02/28/19 08:40 Temperature Pulse Rate Respiratory Rate Blood Pressure Pulse Oximetry 93 Oxygen Delivery Method Room Air,Nasal Cannula Oxygen Flow Rate 0 Narrative Exam Narrative: General: Well-developed, well-nourished, female, no acute distress. Heart: Regular rate and rhythm, no murmurs appreciated Lungs: Coarse throughout, no wheezes, , good respiratory effort, frequent deep wet cough Abd: BS+, soft, nontender, nondistended, no rebound, no guarding Extremities: Warm and well perfused, no edema Objective Labs Result Diagrams: 02/28/19 05:55 02/28/19 05:55 Labs: Laboratory Results - last 24 hr 02/28/19 02/28/19 02/28/19 05:55 05:55 05:55 WBC 17.0 H D RBC 4.19 Hgb 12.2 Hct 36.3 MCV 86.7 MCH 29.1 MCHC 33.5 RDW 13.1 Plt Count 462 H Neut % (Auto) 84.6 H Lymph % (Auto) 6.7 L [place] % (Auto) 7.7 Eos % (Auto) 0.7 L Baso % (Auto) 0.3 Neut # (Auto) 98916 H Lymph # (Auto) 1100 [place] # (Auto) 1300 H Eos # (Auto) 100 Baso # (Auto) 0 Sodium 136 L Potassium 3.5 Chloride 104 Carbon Dioxide 25 BUN 11 Creatinine 0.80 Estimated GFR > 60.0 BUN/Creatinine Ratio 13.8 Glucose 112 H Calcium 8.0 L Total Bilirubin 1.5 H AST 54 H ALT 77 H Alkaline Phosphatase 224 H Total Protein 6.2 L Albumin 3.1 L Globulin 3.1 Albumin/Globulin Ratio 1.0 Procalcitonin 0.67 H Assessment & Plan Assessment & Plan narrative: 63 yo female with sepsis (tachycardia, transaminitis with elevation of bilirubin, fever, increased respirations) from influenza infection with good response to fluid resuscitation with decrease in lactate and tachycardia. Concern for a bacterial pneumonia however chest xray was clear and she had significantly improved with resuscitation, tamiflu, and did get one dose of levofloxacin in ER. Elevated WBC today, ongoing oxygen requirement, procalcitonin is not decreasing very quickly. Metabolic encephalopathy on presentation is improving. Friends are concerned that her behavior has been a little odd the past two months. Her in September from Parkinsons. Acute hypoxic respiratory failure from influenza infection and concern for bacterial pneumonia, possible aspiration - continue tamiflu - continue supplemental oxygen - CXR today since she is post fluids to see if anything has blossomed - will restart levofloxacin Transaminitis likely from influenza with improvement except alk phos. - monitor enzymes - acute hepatitis panel - consider abdominal ultrasound if they don't continue to trend down Dehydration from influenza - continue fluids until taking good PO, they were restarted last night Metabolic encephalopathy, improving. Concern for behavioral changes at home in not having a filter from thought to word. Social work has been seeing her. Await PT and OT evals. Will continue evaluation outpatient. Benign essential tremor likely. Further workup outpatient. Code status: DNR, POLST on file DVT prophylaxis: lovenox at the 30 mg dose (104 lb) Patient will be returning home after her respiratory status improves which will require an additional 24-48 hours of care. Time Spent With Patient Time with patient: Greater than 35 minutes
[2019-02-28] MEDS: predniSONE 20 MG TABLET 40 MG PO (09:49)
[2019-02-28] MEDS: levoFLOXacin 750 MG/150 ML PIGGYBACK 100 MG IV (09:49)
--- NOTE | 2019-02-28 11:14 | PC.NURSE ---
Day Shift- Pt A&OX4, cooperative, states thankful for care and being informed, however does loose conversation flow. States discomfort when coughing to bilateral lower ribs. No prn at this time. LLL crackles and coarseness to bilateral mid and lower lobes. Intermittent coughing with sputum production that pt states she swallows. Weaned from 1L NC to RA in the AM, with spot checks, O2 sat 92-94% on RA. To CXR around 0945, ambulating in room with steady gait with SBA.
[2019-02-28] MEDS: guaiFENesin Solution 100 MG/5 ML UDC PO ×2 (14:26→19:04)
--- NOTE | 2019-02-28 14:42 | OT.IP.TRT ---
Current Diagnoses Other specified sepsis (02/26/19) Occupational Therapy Treatment Note M3 OT- IP Subjective and Pain Start: 02/28/19 14:41 Freq: Status: Active Protocol: Document 02/28/19 14:41 [facility] (Rec: 02/28/19 14:42 [facility] [id number]) OT- Subjective Occupational Therapy Visit Type Type Patient Refusal Notes Attempted OT eval with pt, pt stated too tired from continuous coughing and would rather attempt OT eval tomorrow.
--- NOTE | 2019-02-28 15:47 | CM.DPNOTE ---
Spoke w/Dr Hicks this morning re: concerns relayed by friend and family member yesterday, see this INSPECTOR OPT[employer] INSTRUMENT's prior note. Dr Hicks appreciative and plans to r/o Parkinsons. Re: DCP; pt will likely not meet Home bound status for HH. P: DC likely home w/friends and family via pov, close outpt f/u. Pt would benefit from grief counseling resources upon DC if INSPECTOR [employer] INSTRUMENT available at at that time. CHUCK Young
[2019-02-28] MEDS: LORazepam 0.5 MG TABLET PO (20:52)
--- NOTE | 2019-02-28 23:52 | PC.NURSE ---
This RN spent 10-15 minutes of therapeutic listening regarding of , life with , and patient's goals for future; at times, patient appears mildly confused and with difficulty concentrating and wandering thoughts; pt reports that she feels out of control and like she can't control her thoughts that spin all over, especially during and following coughing spells. Patient admitted to feeling anxious; this RN spoke with MD and received order for PO Ativan and administered to patient, after answering questions about Ativan Bilateral bases coarse to auscultation; O2 RA=95% at rest but will drop into upper 80's during coughing. Call light used, as needed
[2019-03-01] VITALS (7 sets, daily range): BP systolic 115–144; BP diastolic 58–88; PULSE 66–83; RESP 16–18; TEMP 36.5–37.2; O2SAT 95–96
[2019-03-01] MEDS: guaiFENesin Solution 100 MG/5 ML UDC PO (05:58)
[2019-03-01] MEDS: SODIUM CHLORIDE 0.45% 1,000 ML 100 ML IV (06:22)
[2019-03-01 06:56] LABS: Hematocrit 33.4 % (36-46); Hemoglobin 11.3 g/dL (12.0-16.0); Mean Corpuscular HGB Conc 33.9 % (30-36); Mean Corpuscular Hemoglobin 29.2 PG (26-34); Mean Corpuscular Volume 86.1 fL (80-100); Platelet Count 488 X10^3/uL (150-400); Red Blood Cell Count 3.88 X10^6/uL (4.0-5.2); Red Cell Distribution Width 13.2 % (11.6-14.8); White Blood Cell Count 14.3 X10^3/uL (4.5-11.0)
[2019-03-01 06:58] LABS: Add Manual Diff / Slide Review YES
--- NOTE | 2019-03-01 07:00 | PC.NURSE ---
Pt R FA PIV inadvertently removed by patient, new one started and IVF restarted. Pt had shower. Pt continues to cough frequently and productively. Guiafenesin 100 mg po liquid given.
[2019-03-01 07:01] LABS: Alanine Aminotransferase 80 IU/L (9-52); Alkaline Phosphatase 231 U/L (38-126); Aspartate Aminotransferase 71 IU/L (14-36); Bilirubin Total 0.4 mg/dL (0.2-1.3); Blood Urea Nitrogen 9 mg/dL (7-17); Calcium 7.9 mg/dL (8.4-10.2); Carbon Dioxide 24 mmol/L (22-32); Chloride 106 mmol/L (98-107); Estimated Glomerular Filt Rate > 60.0 mL/min (>60); Globulin 3.1 g/dL (1.7-4.1); Glucose 122 mg/dL (80-110); HEMOLYSIS < 15 (0-50); Sodium 138 mmol/L (137-145); Total Protein 6.1 g/dL (6.3-8.2)
[2019-03-01 07:11] LABS: Potassium 2.7 mmol/L (3.4-5.1)
[2019-03-01 07:14] LABS: Neutrophils Absolute Manual 12155 /uL (3000-5900); RBC Morphology Normal Morphology; Total Cells Counted 100
--- NOTE | 2019-03-01 07:29 | PC.NURSE ---
Per IS lab pt has a critical lab of K+ 2.7. Advised day shift ROSALINA Soto, read back and she will notify Dr. Watkins.
[2019-03-01] MEDS: predniSONE 20 MG TABLET 40 MG PO (08:46)
[2019-03-01] MEDS: levoFLOXacin 750 MG/150 ML PIGGYBACK 100 MG IV (08:46)
[2019-03-01] MEDS: OSELTAMIVIR 75 MG CAPSULE PO ×2 (08:46→20:21)
[2019-03-01] MEDS: POTASSIUM CHLORIDE 20 MEQ TAB 40 MEQ PO ×2 (08:46→11:59)
[2019-03-01] MEDS: ENOXAPARIN 30 MG/0.3 ML SYRINGE SUBCUT (08:47)
--- NOTE | 2019-03-01 09:00 | PT.IIE ---
Current Diagnoses Other specified sepsis (02/26/19) Surgical History (Last Updated 02/27/19 @ 08:43 by Ursula Hicks DO) History of bunionectomy of right great toe (Acute) History of lumpectomy of left breast (Acute) Medical History History of malignant neoplasm of female breast Osteopenia (Chronic 05/15/16) Physical Therapy Inpatient Evaluation/Re-Eval M1 PT/OT-IP Prior Functional Status Start: 02/28/19 14:41 Freq: NEEDED Status: Active Protocol: Document 03/01/19 09:00 [facility] (Rec: 03/01/19 10:06 [facility] [id number]) Medical Review Prior Functional Status Medical History Reviewed Yes Mobility and Gait indep. community ambulator without device; pt rides her bike freqently with friends around [facility] Activities of Daily Living and IADL's indep. I/ADLs including driving Social History Household Members none Living Arrangements House Number of Floors (Floors) One Floor Number of Stairs To Enter/Railing? [address] rail from garage into home. No stairs inside Home Environment Walk in Shower Home Equipment Hand Held Shower Grab Bars In Shower Additional Social History Comment Pt in September 2018, but states she has a good support group of friends who can cook meals for her and assist upon d/c. Pt presented with c/o weakness , SOB, diarrhea- found to be ( +) influenza A and this a.m. noted potassium of 2.7. Pt also presents with B pneumonia . M2 PT-IP Current Condition Start: 03/01/19 10:07 Freq: Status: Active Protocol: Document 03/01/19 09:00 [facility] (Rec: 03/01/19 10:08 [facility] [id number]) Physical Therapy Current Condition Current Condition Evaluation Date 03/01/19 Treatment Diagnosis influenza A, weakness, impaired activity tolerance Precautions Other Precautions Droplet precautions (influenza A M3 PT-IP Subjective Start: 03/01/19 09:47 Freq: NEEDED Status: Active Protocol: Document 03/01/19 09:00 [facility] (Rec: 03/01/19 10:06 [facility] [id number]) Subjective Physical Therapy Visit Type Type Initial Evaluation Visit Start Time 09:00 Visit Stop Time 09:32 Total Visit Minutes 32 Number of COMMUNITY SPECIALIST Visits 0 Physical Therapy Visit Comments Patient Comments pt states that she is wanting to get a five-star rating for her participation today. Patient Goals she wants to be able to go home upon d/c M4 PT-IP Mobility and Gait Start: 03/01/19 09:47 Freq: NEEDED Status: Active Protocol: Document 03/01/19 09:00 [facility] (Rec: 03/01/19 10:06 [facility] [id number]) PT-Bed Mobility Assessment Supine to Sit Supine to Sit Independent Sit to Supine Sit to Supine Independent Scooting Scooting to Edge of Bed Independent PT-Transfer Assessment Sit to and From Stand Sit to and from Stand Independent Equipment Transfer Assistive Device Gait Belt Transfers Transfer Destination Bed Chair Toilet Transfer Technique Stand Step Pivot Transfer Ability Level of Assist Standby Assistance Gait Assessment Gait Gait Assistance Required: Standby Assistance Distance (Feet) 220 Assistive Devices Assistive Device Gait Belt Factors Limiting Gait Function Factors Limiting Gait Function Decreased Activity Tolerance Comments Gait Comments initially pt with increseased lateral sway with ambulation in room, but WNL once out in hallway. O2 saturation 90% after ambulation, increased to 93% sitting 30 sec PT-Balance Assessment Sitting Balance and Reactions Static Sitting Balance Ability Good Dynamic Sitting Balance Ability Good Standing Balance and Reactions Static Standing Balance Ability Good Dynamic Standing Balance Ability Good Device Used none M5 PT-IP Objective Assessments Start: 03/01/19 09:47 Freq: NEEDED Status: Active Protocol: Document 03/01/19 09:00 [facility] (Rec: 03/01/19 10:06 [facility] [id number]) Orientation Orientation/Cognition Level of Alertness Alert Language Function Ability No Deficits Noted Safety Awareness Understands Safety Issues Memory Description No Deficits Noted Gross Range of Motion Lower Extremity ROM Assessment Within Functional Limits Strength Lower Extremity Strength Assessment Within Functional Limits Comments Strength Comments LE strength grossly 4/5 or greater with hip flexion, knee flexion and extension and ankle DF Coordination Assessment Assessment Heel on Becerril Test Normal Performance Sensation Assessment Sensation Gross Sensation WNL M6 PT-IP Treatment Start: 03/01/19 09:47 Freq: NEEDED Status: Active Protocol: Document 03/01/19 09:00 [facility] (Rec: 03/01/19 10:06 [facility] [id number]) Physical Therapy Treatment Education Education Provided Safety M7 PT-IP Assessment and Plan Start: 03/01/19 09:47 Freq: NEEDED Status: Active Protocol: Document 03/01/19 09:00 [facility] (Rec: 03/01/19 10:06 [facility] [id number]) PT Summary Assessment and Plan Potential Rehabilitation Potential Good Status of Condition at Evaluation Evolving Summary Impairments Transfers Gait Activity Tolerance Assessment Summary Pt presents with mild SOB during ambulation but able to maintain a conversation while performing gait of 220 ft. Pt did not require the use of an assistive device. Pt will need to complete stair training prior to d/c, but is indep. in bed mobility and sit<->stand, and likely if improving medically will be safe to return home upon d/c. Goals Gait Goal Independent Gait Distance 300 Other Goals up/down 5 steps with unilat rail and SBA Days to Meet Goals 3 Frequency of Treatment Frequency Of Treatment Once a Day Treatment Plan Physical Therapy Treatment Plan Gait Training Therapeutic Exercise Balance Retraining Discharge Planning Neuromuscular Re-ed Other Recommendations and Next Treatment gait and stair training Focus Recommendations To Nursing Amount of Assist Needed Standby Assistance Discharge Recommendations PT Discharge Recommendations Home with Assistance
--- NOTE | 2019-03-01 09:42 | P.PN_ITS ---
Subjective Date Patient Seen: 03/01/19 Time Patient Seen: 09:38 Interval history: Influenza Patient feeling better. Still has a cough. Sounds productive but apparently not. She relates that she never learned how to ?spit?. Still little bit short of breath but ambulating reasonably well with physical therapy. Not requiring supplemental oxygen continuously. Appetite is better. Still feels weak still feels tired still feels worn out but has improved. Stools apparently have improved Exam Vital Signs (past 8 hours): - 03/01/19 03:00 03/01/19 08:11 03/01/19 09:09 Temperature 98.5 F 98.9 F Pulse Rate 67 66 Respiratory Rate 16 18 Blood Pressure 126/58 L 115/60 Pulse Oximetry 95 95 Oxygen Delivery Method Room Air Oxygen Flow Rate 0 Narrative Exam Narrative: The patient is sitting up in the chair next to the bed. Appears in no distress on no supplemental oxygen. Very conversant and verbose describes things that happened to her when she was a child during the course of this discu ssion. But seems appropriate and oriented x3. She is coughing have repeatedly and it sounds productive but apparently not. Chest exam finds very faint wheezes rales at the left base clear somewhat with coughing upper airway rhonchi Cardiac exam regular rhythm no murmur gallop Abdominal exam benign Objective Labs Result Diagrams: 03/01/19 06:37 03/01/19 06:37 Labs: Laboratory Results - last 24 hr 03/01/19 03/01/19 06:37 06:37 WBC 14.3 H RBC 3.88 L Hgb 11.3 L Hct 33.4 L MCV 86.1 MCH 29.2 MCHC 33.9 RDW 13.2 Plt Count 488 H Neut % (Auto) Not Reportable Lymph % (Auto) Not Reportable [place] % (Auto) Not Reportable Eos % (Auto) Not Reportable Baso % (Auto) Not Reportable Lymph # (Auto) Not Reportable [place] # (Auto) Not Reportable Baso # (Auto) Not Reportable Total Counted 100 Seg Neutrophils % 81.0 H Band Neutrophils % 4.0 Lymphocytes % (Manual) 7.0 L Monocytes % (Manual) 8.0 Neutrophils # (Manual) 54091 H RBC Morphology Normal morphology Sodium 138 Potassium 2.7 L* Chloride 106 Carbon Dioxide 24 BUN 9 Creatinine 0.60 Estimated GFR > 60.0 BUN/Creatinine Ratio 15.0 Glucose 122 H Calcium 7.9 L Total Bilirubin 0.4 AST 71 H ALT 80 H Alkaline Phosphatase 231 H Total Protein 6.1 L Albumin 3.0 L Globulin 3.1 Albumin/Globulin Ratio 1.0 labs reviewed as above of significance she has hypokalemia and this will be replaced as ordered. Additionally her white cell count has decreased but her neutrophil count has increased. Presumably this is secondary to her presumed bacterial pneumonia Assessment & Plan Assessment & Plan narrative: 1. Influenza being treated with Tamiflu and intravenous fluids responding. 2. Presumed secondary bacterial pneumonia left lower lobe as per chest x-ray. Additionally has elevated white count. Her procalcitonin level has decreased slightly. 3. Hypokalemia. 4. Mental status today seems normal and appropriate 5. Anticipate probably 2 more days of intravenous antibiotics and medication and therapy
--- NOTE | 2019-03-01 09:48 | P.PN_ITS ---
Exam Vital Signs (past 8 hours): - 03/01/19 03:00 03/01/19 08:11 03/01/19 09:09 Temperature 98.5 F 98.9 F Pulse Rate 67 66 Respiratory Rate 16 18 Blood Pressure 126/58 L 115/60 Pulse Oximetry 95 95 Oxygen Delivery Method Room Air Oxygen Flow Rate 0 Objective Labs Result Diagrams: 03/01/19 06:37 03/01/19 06:37 Labs: Laboratory Results - last 24 hr 03/01/19 03/01/19 06:37 06:37 WBC 14.3 H RBC 3.88 L Hgb 11.3 L Hct 33.4 L MCV 86.1 MCH 29.2 MCHC 33.9 RDW 13.2 Plt Count 488 H Neut % (Auto) Not Reportable Lymph % (Auto) Not Reportable [place] % (Auto) Not Reportable Eos % (Auto) Not Reportable Baso % (Auto) Not Reportable Lymph # (Auto) Not Reportable [place] # (Auto) Not Reportable Baso # (Auto) Not Reportable Total Counted 100 Seg Neutrophils % 81.0 H Band Neutrophils % 4.0 Lymphocytes % (Manual) 7.0 L Monocytes % (Manual) 8.0 Neutrophils # (Manual) 97713 H RBC Morphology Normal morphology Sodium 138 Potassium 2.7 L* Chloride 106 Carbon Dioxide 24 BUN 9 Creatinine 0.60 Estimated GFR > 60.0 BUN/Creatinine Ratio 15.0 Glucose 122 H Calcium 7.9 L Total Bilirubin 0.4 AST 71 H ALT 80 H Alkaline Phosphatase 231 H Total Protein 6.1 L Albumin 3.0 L Globulin 3.1 Albumin/Globulin Ratio 1.0 Assessment & Plan Assessment & Plan narrative: Patient additionally found to have elevated liver function tests. Presumably related to her acute illness. Today's labs are essentially unchanged. Will follow up tomorrow morning and if they are not significantly down get abdominal ultrasound tomorrow as per Dr. Tello request. Hepatitis panel pending
[2019-03-01] MEDS: BENZOCAINE/MENTHOL 1 LOZ PKT 1 EACH PO ×3 (11:59→18:16)
--- NOTE | 2019-03-01 12:05 | OT.IP.EVAL ---
Current Diagnoses Other specified sepsis (02/26/19) Past Medical History History of malignant neoplasm of female breast Osteopenia (Chronic 05/15/16) Surgical History (Last Updated 02/27/19 @ 08:43 by Ursula Hicks DO) History of bunionectomy of right great toe (Acute) History of lumpectomy of left breast (Acute) Occupational Therapy Inpatient Evaluation/Re-Eval M1 PT/OT-IP Prior Functional Status Start: 02/28/19 14:41 Freq: NEEDED Status: Active Protocol: Document 03/01/19 11:49 CGR (Rec: 03/01/19 12:04 CGR [email or web address]) Medical Review Prior Functional Status Medical History Reviewed Yes Mobility and Gait indep. community ambulator without device; pt rides her bike frequently with friends around [facility] Activities of Daily Living and IADL's indep. I/ADLs including driving Prior Functional Level (Other details) Pt is an active bike rider and likes to swim. Social History Household Members none Living Arrangements House Number of Floors (Floors) One Floor Number of Stairs To Enter/Railing? [address]. rail from garage into home. No stairs inside Home Environment Standard Height Toilet Walk in Shower Home Equipment Hand Held Shower Grab Bars In Shower Employment Status Retired Additional Social History Comment Pt in September 2018, but states she has a good support group of friends who can cook meals for her and assist upon d/c. Currently dating a new man. Pt presented with c/o weakness , SOB, diarrhea- found to be ( +) influenza A and this a.m. noted potassium of 2.7. Pt also presents with B pneumonia . M2 OT-IP Current Condition Start: 02/28/19 14:41 Freq: Status: Active Protocol: Document 03/01/19 11:49 CGR (Rec: 03/01/19 12:04 CGR [email or web address]) Occupational Therapy Current Condition Current Condition Evaluation Date 03/01/19 Treatment Diagnosis Influenza and PNA Post Operative Precautions Other Precautions droplet precautions M3 OT- IP Subjective and Pain Start: 02/28/19 14:41 Freq: Status: Active Protocol: Document 03/01/19 11:49 CGR (Rec: 03/01/19 12:04 CGR [email or web address]) OT- Subjective Occupational Therapy Visit Type Type Initial Evaluation Visit Start Time 09:15 Visit Stop Time 09:55 Total Visit Minutes 40 Notes Partial co-treat with P.T. Occupational Therapy Visit Comments Patient Comments I want to earn 5 stars on this today! OT Pain Assessment Pain When Pain Assessed At Rest Pain Present Pain Present Denied Pain M4 OT- IP ADL's Start: 02/28/19 14:41 Freq: Status: Active Protocol: Document 03/01/19 11:49 CGR (Rec: 03/01/19 12:04 CGR [email or web address]) OT BPC-Hzyy-Caddgvz General Evaluation Self-Feeding Ability Independent Comments OT Self-Feeding Comments Drinking fluids OT ADL-Grooming General Evaluation Grooming Ability Independent Areas Needing Assistance Face Washing Comments OT Grooming Comments standing at sink OT ADL-Oral Care General Eval Oral Care Ability Independent Areas of Assistance Brushing Teeth Devices Oral Care Devices Toothbrush Comments Oral Care Comments standing at sink OT ADL-Dressing General Eval Upper Body Dressing Ability Independent Lower Body Dressing Ability Independent Areas Needing Assistance Socks Comments OT Dressing Comments Able to perform without assist seated in chair. OT ADL-Toileting Comments OT Toileting Comments Just performed with P.T. M5 OT- IP IADL's Start: 02/28/19 14:41 Freq: Status: Active Protocol: Document 03/01/19 11:49 CGR (Rec: 03/01/19 12:04 CGR [email or web address]) OT-Instrumental Activities of Daily Living Home Safety Awareness Awareness of Need for Assistance at Home Good Awareness Ability to Problem Solve Emergency Able to Problem Solve Situations Home Safety Comments Pt states she will not drive again till she is cleared by her doctor because she doesnt want to hurt herself or anyone else. Medication Management Medication Management No Deficits Identified Money Management Money Management No Deficits Identified Meal Preparation Meal Preparation No Deficits Identified Striper Striper No Deficits Identified M6 OT- IP Functional Cognition Start: 02/28/19 14:41 Freq: Status: Active Protocol: Document 03/01/19 11:49 CGR (Rec: 03/01/19 12:04 CGR [email or web address]) Cognitive Factors Limiting Selfcare Function Cognitive Ability Level of Alertness Alert Patient Orientation Name Age Birthday Month Date Year Day of Week Place Situation Attention Span Ability Capable of Focused Attention Ability to Follow Commands Able to Follow Multi-Step Commands Memory Description No Deficits Noted Safety Awareness No Deficits Noted Problem Solving Ability No deficits Noted Executive Function Ability No Deficits Noted Abstract Thinking Ability No Deficits Noted Cognitive Comments Cognitive Assessment Comments Pt is very loquacious but able to follow all instructions and answer all questions without difficulty. OT- Vision and Hearing OT- Hearing Assessment OT- Hearing Assessment WFL OT- Vision Assessment Visual Acuity WFL Visual Attentiveness WFL Occular Pursuits WFL Visual Convergence WFL Visual Liriano WFL Diplopia Absent Visual Spacial Neglect Not Applicable Vision Assessment Comments No glasses M7 OT- IP Mobility and Balance Start: 02/28/19 14:41 Freq: Status: Active Protocol: Document 03/01/19 11:49 CGR (Rec: 03/01/19 12:04 CGR [email or web address]) OT- Bed Mobility Assessment Rolling Type of Rolling Roll to Left Level of Assistance Standby Assistance Supine to Sit Supine to Sit Assist Standby Assistance Scooting Scooting to Edge of Bed Independent OT-Transfer Assessment Sit to and From Stand Sit to and from Stand Standby Assistance Transfers Transfer Ability Standby Assistance Technique Transfer Destination Bed Chair Devices Transfer Assistive Devices Gait Belt Comments Mobility Comments Pt needs VC to stop talking to catch breath and noted desaturation to low 90s with mobility. OT- Gait Assessment Gait Gait Assistance Required: Standby Assistance Assistive Devices Assistive Device Gait Belt Comments Gait Ability Comments See P.T. note for further assessment OT- Balance Assessment Sitting Balance and Reactions Static Sitting Balance Ability Normal Dynamic Sitting Balance Ability Normal Standing Balance and Reactions Static Standing Balance Ability Normal Dynamic Standing Balance Ability Normal M8 OT- IP Objective Assessments Start: 02/28/19 14:41 Freq: Status: Active Protocol: Document 03/01/19 11:49 CGR (Rec: 03/01/19 12:04 CGR [email or web address]) OT Gross Range of Motion Upper Extremity Range of Motion Assessment Within Functional Limits OT Strength Upper Extremity Strength Assessment Within Functional Limits Hand Lithographic Artist Strength Hand Dominance Right OT- Coordination Assessment Upper Extremity Finger to Nose Test Within Functional Limits Finger Tapping Test Within Functional Limits OT Sensation Assessment Comments Summary Comments WFL for BUE Edema Edema Absent M9 OT- IP Assessment and Plan Start: 02/28/19 14:41 Freq: Status: Active Protocol: Document 03/01/19 11:49 CGR (Rec: 03/01/19 12:04 CGR [email or web address]) OT Summary Assessment and Plan Potential Rehabilitation Potential Excellent Analytic Complexity at Evaluation Low Summary Assessment Summary Pt presents close to her baseline with only endurance deficits noted. Will defer endurance to P.T. at this time and discharge from OT services. Frequency of Treatment Frequency Of Treatment Discharge Discharge Recommendations OT Discharge Recommendations Home Home Equipment Needs No needs at this time.
--- NOTE | 2019-03-01 12:39 | CM.DPC ---
DCP Cont: Per MD, pt still has some elevated levels and will recheck to determine if ultrasound needed. Per PT/OT, pt seems to be close to her baseline and has multiple supports that are helping pt with meals and check ins and pt currently dating a new gentleman since her spouse's in September and recommending safe d/c home with friend assist when medically stable. Pt does not qualify for at this time as not homebound. Pt independent at baseline, drives, and rides her bike regularly. Plan: SW to follow for likely pt d/c home with friend assist when medically stable. Pt currently declining grief support services as she states she has lots of friend support. CHUCK Reardon
[2019-03-01] MEDS: SODIUM CHLORIDE 0.9% FLUSH 10 ML IV (20:21)
[2019-03-02] VITALS (7 sets, daily range): BP systolic 120–134; BP diastolic 69–89; PULSE 62–76; RESP 16–18; TEMP 36.8–37.3; O2SAT 93–96
--- NOTE | 2019-03-02 | DI.US.S_ITS ---
PROCEDURE: US ABDOMEN COMPLETE INDICATIONS: INCREASING LIVER FUNCTION TESTS TECHNIQUE: Real-time scanning was performed of the abdominal and retroperitoneal organs, with image documentation. COMPARISON: None. FINDINGS: Liver: Liver is normal in size and homogeneous in echotexture. There is a 1.3 x 0.8 x 1.0 cm hyperechoic rounded lesion in the anterior left lobe which may represent a hemangioma. Gallbladder: Gallbladder is sonographically normal. No gallstones. No gallbladder wall thickening. No pericholecystic fluid. No sonographic Posada sign. Biliary ducts: Intrahepatic bile ducts are non-dilated. Extrahepatic bile duct caliber measures 4.0 mm. Normal is 6-7 mm or less in diameter, or 10 mm or less post-cholecystectomy. Pancreas: Visualized portions of the pancreas are sonographically normal. Spleen: Spleen is normal in size and homogeneous in echotexture. Kidneys: Kidneys are normal in size and echotexture. Right kidney measures 10.5 cm long; left kidney measures 10.5 cm long. No hydronephrosis or nephrolithiasis. No solid masses. Bilateral renal cysts noted. Aorta: Visualized aorta is normal in caliber at less than 3 cm. Iliacs: Obscured by bowel gas cannot be evaluated. IVC: Intrahepatic inferior vena cava is patent. Miscellaneous: No free abdominal fluid. IMPRESSION: 1. Possible 1.3 x 0.8 x 1.0 cm left hepatic hemangioma. Recommend followup ultrasound in 3 months confirm stability of the finding. 2. Small bilateral renal cysts. 3. Otherwise, normal abdominal sonogram. Dictated by: Megan Ramirez MD, PhD on 03/02/2019 at 18:34 Approved by: Megan Ramirez MD, PhD on 03/02/2019 at 18:36
[2019-03-02 06:24] LABS: Alanine Aminotransferase 137 IU/L (9-52); Albumin 2.8 g/dL (3.5-5.0); Alkaline Phosphatase 245 U/L (38-126); Aspartate Aminotransferase 107 IU/L (14-36); Bilirubin Total 0.4 mg/dL (0.2-1.3); Bilirubin Unconjugated 0.3 mg/dL (0.0-1.1); Globulin 2.8 g/dL (1.7-4.1); HEMOLYSIS < 15 (0-50); Total Protein 5.6 g/dL (6.3-8.2)
[2019-03-02 06:25] LABS: BUN Creatinine Ratio 13.3 (6-22); Blood Urea Nitrogen 8 mg/dL (7-17); Calcium 8.1 mg/dL (8.4-10.2); Carbon Dioxide 27 mmol/L (22-32); Chloride 106 mmol/L (98-107); Estimated Glomerular Filt Rate > 60.0 mL/min (>60); Glucose 87 mg/dL (80-110); HEMOLYSIS < 15 (0-50); Potassium 3.4 mmol/L (3.4-5.1); Sodium 139 mmol/L (137-145)
[2019-03-02] MEDS: levoFLOXacin 750 MG/150 ML PIGGYBACK 100 MG IV (08:42)
[2019-03-02] MEDS: ENOXAPARIN 30 MG/0.3 ML SYRINGE SUBCUT (08:42)
[2019-03-02] MEDS: predniSONE 20 MG TABLET 40 MG PO (08:42)
[2019-03-02] MEDS: OSELTAMIVIR 75 MG CAPSULE PO (08:42)
[2019-03-02] MEDS: BENZOCAINE/MENTHOL 1 LOZ PKT 1 EACH PO (08:43)
--- NOTE | 2019-03-02 09:50 | PT.IPTN ---
Current Diagnoses Other specified sepsis (02/26/19) Physical Therapy Treatment Note M2 PT-IP Current Condition Start: 03/01/19 10:07 Freq: Status: Active Protocol: Document 03/01/19 09:00 RCC (Rec: 03/01/19 10:08 RCC [id number]) Physical Therapy Current Condition Current Condition Evaluation Date 03/01/19 Treatment Diagnosis influenza A, weakness, impaired activity tolerance Precautions Other Precautions Droplet precautions (influenza A M3 PT-IP Subjective Start: 03/01/19 09:47 Freq: NEEDED Status: Active Protocol: Document 03/02/19 09:20 CLB (Rec: 03/02/19 09:49 CLB [id number]) Subjective Physical Therapy Visit Type Type Treatment Note Visit Start Time 09:20 Visit Stop Time 09:41 Total Visit Minutes 21 Number of ESCALATOR INSTALLER Visits 1 Physical Therapy Visit Comments Patient Comments Pt willing to ambulate. Patient Goals she wants to be able to go home upon d/c M4 PT-IP Mobility and Gait Start: 03/01/19 09:47 Freq: NEEDED Status: Active Protocol: Document 03/02/19 09:20 CLB (Rec: 03/02/19 09:49 CLB [id number]) PT-Transfer Assessment Sit to and From Stand Sit to and from Stand Independent Equipment Transfer Assistive Device Gait Belt Transfers Transfer Destination Chair Transfer Ability Level of Assist Standby Assistance Gait Assessment Gait Gait Assistance Required: Standby Assistance Distance (Feet) 400 Assistive Devices Assistive Device Gait Belt Factors Limiting Gait Function Factors Limiting Gait Function Decreased Activity Tolerance Comments Gait Comments Pt with steady gait while ambulating ~400ft. Pt O2 saturation 89-92% during ambulation. Stair Climbing Assessment Evaluation Level of Assist On Stairs Standby Assistance Technique/Endurance Stair Climbing Direction Ascend and Descend Stair Climbing Technique Step Over Step Number of Steps Climbed 3 Query Text: Stair Climbing Set # Repetitions (reps) 2 Comments Stair Climbing Comments Pt safe climbing stairs using one rail. M5 PT-IP Objective Assessments Start: 03/01/19 09:47 Freq: NEEDED Status: Active Protocol: Document 03/01/19 09:00 RCC (Rec: 03/01/19 10:06 RCC [id number]) Orientation Orientation/Cognition Level of Alertness Alert Language Function Ability No Deficits Noted Safety Awareness Understands Safety Issues Memory Description No Deficits Noted Gross Range of Motion Lower Extremity ROM Assessment Within Functional Limits Strength Lower Extremity Strength Assessment Within Functional Limits Comments Strength Comments LE strength grossly 4/5 or greater with hip flexion, knee flexion and extension and ankle DF Coordination Assessment Assessment Heel on Becerril Test Normal Performance Sensation Assessment Sensation Gross Sensation WNL M6 PT-IP Treatment Start: 03/01/19 09:47 Freq: NEEDED Status: Active Protocol: Document 03/01/19 09:00 RCC (Rec: 03/01/19 10:06 RCC [id number]) Physical Therapy Treatment Education Education Provided Safety M7 PT-IP Assessment and Plan Start: 03/01/19 09:47 Freq: NEEDED Status: Active Protocol: Document 03/02/19 09:20 CLB (Rec: 03/02/19 09:49 CLB [id number]) PT Summary Assessment and Plan Summary Assessment Summary Pt with coughing and c/o SOB during ambulation. Pt ambulated ~400ft in [place] with stops to check O2 saturations. Pt completed stair training. O2 saturations ranged from 89- 92 during tx. Goals Gait Goal Independent Gait Distance 300 Other Goals up/down 5 steps with unilat rail and SBA Days to Meet Goals 3 Frequency of Treatment Frequency Of Treatment Once a Day Treatment Plan Physical Therapy Treatment Plan Gait Training Therapeutic Exercise Balance Retraining Discharge Planning Neuromuscular Re-ed Other Recommendations and Next Treatment gait Focus Recommendations To Nursing Amount of Assist Needed Standby Assistance Discharge Recommendations PT Discharge Recommendations Home with Assistance
--- NOTE | 2019-03-02 13:11 | P.DS_ITS ---
History of Present Illness Chief complaint: Weakness/diarrhea/fever/headache/increased hr Discharge Providers Date of admission: 02/26/19 20:47 Discharge Date: 03/02/19 Primary care physician: Ursula Hicks DO Consults: 02/27/19 20:35 Consult to Respiratory Therapy Evaluate & Treat Comment: Physician Instructions: Evaluate and treat 02/28/19 09:08 Consult to Occupational Therapy Evaluate & Treat Comment: needs for discharge Physician Instructions: Evaluate and treat Consult to Physical Therapy Evaluate & Treat Comment: conditioning, help after discharge? Physician Instructions: Evaluate and Treat Discharge provider: Raheem Watkins MD Summary Discharge Diagnosis: 1. Influenza. 2. Presumed left lower lobe pneumonia. Hospital Course: The patient was admitted through the ER because of significant illness. She was dehydrated and hypotensive. She received intravenous fluids in the same symptoms and problems resolved. She is found have a positive then influenza test and was treated with Tamiflu 75 mg twice a day and will be discharged on 1 more day of this having been on [place] iflu for total 5 days. Additionally there is some concern about pneumonia repeat chest x-ray did show some infiltrate left lower lobe. She was treated with Levaquin 750 mg daily and she was discharged on this for another week. Patient was ambulating without oxygen eating normal foods no shortness of breath ox saturations remain normal without oxygen. Status at Discharge Cognitive/behavioral status at discharge: oriented Functional status at discharge: independent ambulation Overall status at discharge: patient is back to baseline Exam Vital Signs (past 8 hours): - 03/02/19 07:20 03/02/19 07:36 03/02/19 08:28 Temperature 98.4 F Pulse Rate 64 66 Respiratory Rate 16 16 Blood Pressure 134/69 Pulse Oximetry 93 93 94 03/02/19 11:02 Temperature 99.0 F Pulse Rate 76 Respiratory Rate 16 Blood Pressure 124/89 Pulse Oximetry 93 Fraction of Inspired Oxygen 21 Oxygen Delivery Method Room Air Oxygen Flow Rate 0 Objective Labs Result Diagrams: 03/01/19 06:37 03/02/19 05:55 Labs: Laboratory Results - last 24 hr 03/02/19 03/02/19 05:55 05:55 Sodium 139 Potassium 3.4 Chloride 106 Carbon Dioxide 27 BUN 8 Creatinine 0.60 Estimated GFR > 60.0 BUN/Creatinine Ratio 13.3 Glucose 87 Calcium 8.1 L Total Bilirubin 0.4 Conjugated Bilirubin 0.0 Unconjugated Bilirubin 0.3 AST 107 H ALT 137 H Alkaline Phosphatase 245 H Total Protein 5.6 L Albumin 2.8 L Globulin 2.8 Albumin/Globulin Ratio 1.0 Discharge Plan Discharge Plan Patient Disposition: Home Discharge comment: abd US pending. f/u w Dr. Hicks 3 days Discharge Med Rec/Prescriptions Prescriptions: New oseltamivir [Tamiflu] 75 mg Capsule 75 mg PO BID Qty: 4 RF: 0 levofloxacin [Levaquin] 750 mg tablet 750 mg PO DAILY Qty: 7 RF: 0 Follow up/Referrals: Ursula Hicks DO [Primary Care Provider] - Discharge Data Primary Care Provider: Ursula Hicks Attending Provider: Ursula Hicks Admit Date/Time: 02/26/19 20:47
--- NOTE | 2019-03-02 14:36 | CM.DPNOTE ---
Discharge orders received for patient. Met with patient and she confirms that she is discharging home today with no d/c needs identified with a family friend to transport. Plan: Home with no needs today.
[2019-03-03 08:39] LABS: Hepatitis A Antibody IgM NONREACTIVE (NONREACTIVE); Hepatitis Acute Panel Interp 0.02; Hepatitis B Core Antibody IgM NONREACTIVE (NONREACTIVE); Hepatitis B Surface Antigen NONREACTIVE (NONREACTIVE); Hepatitis C Antibody NONREACTIVE
== END 2019-03-02 14:36 | disposition home or self-care (01) | DRG 193 ==
LOC: ED 20:28 → AC 20:48
PROVIDERS: Family Medicine; Admitting Provider Family Medicine; Emergency Provider Emergency Medicine; PCP Family Medicine; Visit Provider Family Medicine
DX: J10.08 Influenza due to other identified influenza virus with other specified pneumonia (principal); J96.01 Acute respiratory failure with hypoxia; G93.41 Metabolic encephalopathy; J15.9 Unspecified bacterial pneumonia; E80.6 Other disorders of bilirubin metabolism; E86.0 Dehydration
CPT/HCPCS: 36415; 36591; 36600; 71045; 71046; 76700; 80048; 80053; 80074; 80076; 82805; 83605; 84145; 85025; 87040; 87400; 93005; 94667; 94760; 94762; 97116; 97162; 97165; 97535; 99223; 99232; 99233; 99238; 99284; J1650; J1956; J2405; J7050

== ENCOUNTER → 2019-03-19 16:37 | Outpatient (CLI) | payer OTHER, SELFPAY ==
[2019-02-26 21:34] VITALS: BMI 22.6
[2019-03-19 18:34] LABS: Alanine Aminotransferase 27 IU/L (9-52); Albumin Globulin Ratio 1.3 (1.0-2.8); Alkaline Phosphatase 98 U/L (38-126); Aspartate Aminotransferase 22 IU/L (14-36); BUN Creatinine Ratio 17.1 (6-22); Bilirubin Total 0.2 mg/dL (0.2-1.3); Blood Urea Nitrogen 12 mg/dL (7-17); Calcium 9.1 mg/dL (8.4-10.2); Carbon Dioxide 26 mmol/L (22-32); Chloride 105 mmol/L (98-107); Cholesterol 200 mg/dL (140-199); Estimated Glomerular Filt Rate > 60.0 mL/min (>60); Glucose 92 mg/dL (80-110); HDL Cholesterol 76 mg/dL (40-60); HEMOLYSIS < 15 (0-50); LDL Cholesterol Calculated 105 mg/dL (<100); Potassium 4.2 mmol/L (3.4-5.1); Sodium 139 mmol/L (137-145); Triglycerides 93 mg/dL (35-150)
[2019-03-19 19:03] LABS: TSH w/ Reflex to FT4 1.76 uIU/mL (0.47-4.68)
[2019-03-19 19:24] LABS: Vitamin B12 471 pg/mL (239-931)
[2019-03-20 00:32] LABS: Vitamin D 25 Hydroxy (D3) < 12.8 ng/mL (30.0-100.0)
[2019-03-20 00:39] LABS: Hemoglobin A1C% w Est Avg Glu 5.7 % (4.0-6.0)
[2019-03-24 05:24] LABS: Methylmalonic Acid 169 nmol/L (87-318)
[2019-03-25 23:37] LABS: Homocysteine 7.6 umol/L (< 10.4)
== END ==
PROVIDERS: PCP Family Medicine; Visit Provider Family Medicine
DX: M85.80 Other specified disorders of bone density and structure, unspecified site (principal); R94.5 Abnormal results of liver function studies; G35 Multiple sclerosis; I10 Essential (primary) hypertension
CPT/HCPCS: 36415; 80053; 80061; 82306; 82607; 83036; 83090; 83921; 84443

== ENCOUNTER → 2019-03-28 11:49 | Outpatient (CLI) | payer OTHER, SELFPAY ==
[2019-02-26 21:34] VITALS: BMI 22.6
--- NOTE | 2019-03-28 11:52 | DI.RAD.S_ITS ---
PROCEDURE: XR CHEST 2V INDICATIONS: Pneumonia Follow up TECHNIQUE: 2 views of the chest were acquired. COMPARISON: [facility], CR, XR CHEST 2V, 02/28/2019, 9:20. FINDINGS: Surgical changes and devices: Surgical clips projecting over the left breast Lungs and pleura: Lungs are clear. No pleural effusions or pneumothorax. Mediastinum: Mediastinal contours are normal. Heart size is normal. Bones and chest wall: No suspicious bony abnormalities. Soft tissues appear unremarkable. IMPRESSION: No acute disease Dictated by: Pro Enriquez M.D. on 03/28/2019 at 14:11 Approved by: Pro Enriquez M.D. on 03/28/2019 at 14:11
== END ==
PROVIDERS: PCP Family Medicine; Visit Provider Family Medicine
DX: J18.9 Pneumonia, unspecified organism (principal)
CPT/HCPCS: 71046

== ENCOUNTER → 2019-04-22 19:04 | Outpatient (CLI) | payer OTHER, SELFPAY ==
[2019-02-26 21:34] VITALS: BMI 22.6
--- NOTE | 2019-04-22 19:10 | DI.RAD.S_ITS ---
PROCEDURE: XR CHEST 2V INDICATIONS: Pneumonia concerns TECHNIQUE: 2 views of the chest were acquired. COMPARISON: [facility], CR, XR CHEST 2V, 02/28/2019, 9:20. [facility], CR, XR CHEST 2V, 03/28/2019, 11:53. FINDINGS: Surgical changes and devices: Multiple surgical clips project over the left chest. Lungs and pleura: Lungs are clear. Previously noted posterior left basilar opacities have resolved. No pleural effusions or pneumothorax. Mediastinum: Mediastinal contours are normal. Heart size is normal. Bones and chest wall: No suspicious bony abnormalities. Soft tissues appear unremarkable. IMPRESSION: Chest without acute cardiopulmonary abnormalities. No focal consolidations. Dictated by: Frantz Contreras M.D. on 04/22/2019 at 20:19 Approved by: Frantz Contreras M.D. on 04/22/2019 at 20:20
== END ==
PROVIDERS: PCP Family Medicine; Visit Provider Physician Assistant
DX: J18.9 Pneumonia, unspecified organism (principal)
CPT/HCPCS: 71046

== ENCOUNTER 2019-04-23 10:39 | Emergency (ER) | payer OTHER, SELFPAY ==
[2019-02-26 21:34] VITALS: BMI 22.6
[2019-04-23 10:42] VITALS: BP 98/68; PULSE 77; RESP 18; TEMP 36.7; O2SAT 94
[2019-04-23 11:30] VITALS: BP 105/68; PULSE 66; RESP 16; O2SAT 96
[2019-04-23 13:47] LABS: Add Manual Diff / Slide Review NO; Basophils Absolute Auto 0 /uL (0-100); Basophils Percent Auto 0.6 % (0-2); Eosinophils Absolute Auto 0 /uL (0-450); Eosinophils Percent Auto 0.5 % (2-4); Hematocrit 43.8 % (36-46); Hemoglobin 14.9 g/dL (12.0-16.0); Lymphocytes Absolute Auto 1300 /uL (1100-4500); Lymphocytes Percent Auto 16.1 % (25-40); Mean Corpuscular HGB Conc 34.2 % (30-36); Mean Corpuscular Hemoglobin 29.6 PG (26-34); Mean Corpuscular Volume 86.6 fL (80-100); Monocytes Absolute Auto 700 /uL (0-900); Neutrophils Absolute Auto 6000 /uL (1500-7000); Neutrophils Percent Auto 73.8 % (50-75); Platelet Count 381 X10^3/uL (150-400); Red Blood Cell Count 5.05 X10^6/uL (4.0-5.2); Red Cell Distribution Width 13.5 % (11.6-14.8); White Blood Cell Count 8.1 X10^3/uL (4.5-11.0)
[2019-04-23 14:00] LABS: Alanine Aminotransferase 23 IU/L (9-52); Albumin 4.4 g/dL (3.5-5.0); Albumin Globulin Ratio 1.2 (1.0-2.8); Alkaline Phosphatase 87 U/L (38-126); Aspartate Aminotransferase 30 IU/L (14-36); BUN Creatinine Ratio 17.8 (6-22); Bilirubin Total 0.6 mg/dL (0.2-1.3); Blood Urea Nitrogen 16 mg/dL (7-17); Calcium 9.3 mg/dL (8.4-10.2); Carbon Dioxide 28 mmol/L (22-32); Chloride 100 mmol/L (98-107); Estimated Glomerular Filt Rate > 60.0 mL/min (>60); Globulin 3.6 g/dL (1.7-4.1); Glucose 103 mg/dL (80-110); HEMOLYSIS < 15 (0-50); Potassium 3.9 mmol/L (3.4-5.1); Sodium 137 mmol/L (137-145)
--- NOTE | 2019-04-23 14:32 | ED.URI ---
HPI - URI/Sore Throat <DEBORAH Luna - Last Filed: 04/23/19 14:36> General Chief Complaint: Upper Respiratory Symptoms Stated Complaint: 'RESPITORY STUFF' Time Seen by Provider: 04/23/19 13:43 Source: patient Mode of arrival: ambulatory Limitations: no limitations History of Present Illness HPI Narrative: The patient is a 63-year-old female nonsmoker with history of sepsis and pneumonia who presents with a chief complaint of a cough. She was evaluated at a walk-in clinic yesterday and had a negative chest x-ray. She states her cough is keeping her up at night. She denies any fevers. Denies any vomiting diarrhea or abdominal pain. She denies any chest pain. She stated she was short of breath earlier, but no longer is. Upon my interview the patient states that she would like to leave as she feels much improved after a nap. She states her cough is much improved. She states she is not eating as much earlier, but is hungry now. She complains of a headache and neck pain that was improved with [id number]-[id number] medications. Upon my interview the patient is requesting to leave. Related Data Previous Rx's Medication Instructions Recorded cholecalciferol (vitamin D3) 50,000 unit PO QWEEK #8 cap 03/26/19 50,000 unit capsule Allergies Allergy/AdvReac Type Severity Reaction Status Date / Time venom-honey bee Allergy Severe swelling, Verified 02/26/19 19:14 [BEE VENOM (HONEY BEE)] redness, shortness of breath Penicillins [PENICILLINS] Allergy Mild RASH Verified 02/26/19 19:14 Review of Systems <DEBORAH Luna - Last Filed: 04/23/19 14:36> Review of Systems GENERAL: Denies chills, fatigue, malaise, fever, sweats. HEENT: Denies sinus pain, ear pain, sore throat, difficulty swallowing, dizziness. RESPIRATORY: See HPI CARDIOVASCULAR: Denies chest pain, palpitations, orthopnea, edema, GASTROINTESTINAL: Denies nausea, vomiting, abdominal pain, diarrhea, constipation, melena. : Denies dysuria, frequency, incontinence, hematuria, urinary retention. MUSCULOSKELETAL: denies weakness, joint pain, or bony pain SKIN: Denies rash, skin lesions, or other NEUROLOGIC: Denies weakness, headache, numbness, change in speech, confusion, seizures, incoordination. PSYCHIATRIC: No concerning psychosocial issues. 12 point review of systems is negative except for those stated above PFSH <DEBORAH Luna - Last Filed: 04/23/19 14:36> Medical History History of malignant neoplasm of female breast Osteopenia (Chronic 05/15/16) Surgical History History of bunionectomy of right great toe (Acute) History of lumpectomy of left breast (Acute) Family History (Updated 05/15/16 @ 00:00 by Ursula Hicks DO) Father Osteoarthritis, unspecified osteoarthritis type, unspecified site Social History household members: none Smoking Status: Never smoker alcohol intake: current Family History Father Osteoarthritis, unspecified osteoarthritis type, unspecified site Social History household members: none Smoking Status: Never smoker alcohol intake: current Exam <DEBORAH Luna - Last Filed: 04/23/19 14:36> Narrative Exam Narrative: GENERAL: thin elderly female no acute distress wearing mass HEAD: Atraumatic. Normocephalic. No temporal or scalp tenderness. EYES: Pupils equal round and reactive. Extraocular motions intact. No scleral icterus. No injection or drainage. ENT: Nose without bleeding, purulent drainage or septal hematoma. Throat without erythema, tonsillar hypertrophy or exudate. Uvula midline. Airway patent. NECK: Trachea midline. No JVD or lymphadenopathy. Supple, nontender, no meningeal signs. CARDIOVASCULAR: Regular rate and rhythm RESPIRATORY: Clear to auscultation. Breath sounds equal bilaterally. No wheezes, rales, or rhonchi. Dry cough on exam. No retractions. No accessory muscle use. No stridor. GASTROINTESTINAL: Abdomen soft, non-tender, nondistended. No hepato-splenomegaly, or palpable masses. No guarding. Active bowel sounds. EXTREMITIES: No clubbing, cyanosis, or edema. No joint tenderness, effusion, or edema noted. BACK: Nontender without deformity or crepitance. No flank tenderness. NEURO: AOx3. SKIN: No rash or erythema. Initial Vital Signs Initial Vital Signs: Vital Signs Temperature 98.0 F 04/23/19 10:42 Pulse Rate 77 04/23/19 10:42 Respiratory Rate 18 04/23/19 10:42 Blood Pressure 98/68 04/23/19 10:42 Pulse Oximetry 94 04/23/19 10:42 <Tamara Starkey DO - Last Filed: 04/23/19 19:29> Initial Vital Signs Initial Vital Signs: Vital Signs Temperature 98.0 F 04/23/19 10:42 Pulse Rate 77 04/23/19 10:42 Respiratory Rate 18 04/23/19 10:42 Blood Pressure 98/68 04/23/19 10:42 Pulse Oximetry 94 04/23/19 10:42 Course <DEBORAH Luna - Last Filed: 04/23/19 14:36> Orders Ordered: ED Orders 04/23/19 13:42 Complete Blood Count AUTO DIFF Stat Comprehensive Metabolic Panel Stat Vital Signs - 8 hr 04/23/19 11:30 Pulse Rate 66 Respiratory Rate 16 Blood Pressure [Right Arm] 105/68 Pulse Oximetry 96 <DO Nayana Garduno Last Filed: 04/23/19 19:29> Orders Ordered: ED Orders 04/23/19 13:42 Complete Blood Count AUTO DIFF Stat Comprehensive Metabolic Panel Stat Vital Signs - 8 hr 04/23/19 11:30 Pulse Rate 66 Respiratory Rate 16 Blood Pressure [Right Arm] 105/68 Pulse Oximetry 96 MDM - URI/Sore Throat <DEBORAH Luna - Last Filed: 04/23/19 14:36> Lab Data Result diagrams: 04/23/19 13:42 04/23/19 13:42 Lab Results 04/23/19 04/23/19 Range/Units 13:42 13:42 WBC 8.1 (4.5-11.0) X10^3/uL RBC 5.05 (4.0-5.2) X10^6/uL Hgb 14.9 (12.0-16.0) g/dL Hct 43.8 (36-46) % MCV 86.6 (80-100) fL MCH 29.6 (26-34) PG MCHC 34.2 (30-36) % RDW 13.5 (11.6-14.8) % Plt Count 381 (150-400) X10^3/uL Neut % (Auto) 73.8 (50-75) % Lymph % (Auto) 16.1 L (25-40) % [place] % (Auto) 9.0 (3-14) % Eos % (Auto) 0.5 L (2-4) % Baso % (Auto) 0.6 (0-2) % Neut # (Auto) 6000 (2095-8659) /uL Lymph # (Auto) 1300 (6146-9823) /uL [place] # (Auto) 700 (0-900) /uL Eos # (Auto) 0 (0-450) /uL Baso # (Auto) 0 (0-100) /uL Sodium 137 (137-145) mmol/L Potassium 3.9 (3.4-5.1) mmol/L Chloride 100 (98-107) mmol/L Carbon Dioxide 28 (22-32) mmol/L BUN 16 (7-17) mg/dL Creatinine 0.90 (0.52-1.04) mg/dL Estimated GFR > 60.0 (>60) mL/min BUN/Creatinine Ratio 17.8 (6-22) Glucose 103 (80-110) mg/dL Calcium 9.3 (8.4-10.2) mg/dL Total Bilirubin 0.6 (0.2-1.3) mg/dL AST 30 (14-36) IU/L ALT 23 (9-52) IU/L Alkaline Phosphatase 87 (38-126) U/L Total Protein 8.0 (6.3-8.2) g/dL Albumin 4.4 (3.5-5.0) g/dL Globulin 3.6 (1.7-4.1) g/dL Albumin/Globulin Ratio 1.2 (1.0-2.8) Imaging Data Chest x-ray: Radiologist's impression: [address] [address] XRay Report Signed Patient: Meri Coates [facility]#: [id number] : 4Acct:[id number] Age/Sex: 63 / FDate of Service: 04/22/19 Loc: DI Accession Number: [id number] Procedure: XR chest 2V Ordering Provider: Monalisa Rubin P.A-C PROCEDURE: XR CHEST 2V INDICATIONS: Pneumonia concerns TECHNIQUE: 2 views of the chest were acquired. COMPARISON: [facility], CR, XR CHEST 2V, 02/28/2019, 9:20. [facility], CR, XR CHEST 2V, 03/28/2019, 11:53. FINDINGS: Surgical changes and devices: Multiple surgical clips project over the left chest. Lungs and pleura: Lungs are clear. Previously noted posterior left basilar opacities have resolved. No pleural effusions or pneumothorax. Mediastinum: Mediastinal contours are normal. Heart size is normal. Bones and chest wall: No suspicious bony abnormalities. Soft tissues appear unremarkable. IMPRESSION: Chest without acute cardiopulmonary abnormalities. No focal consolidations. Dictated by: Frantz Contreras M.D. on 04/22/2019 at 20:19 Approved by: Frantz Contreras M.D. on 04/22/2019 at 20:20 MDM Narrative Medical decision making narrative: The patient is a 63 year ld female with a cough. She has a normal chest x-ray from yesterday. Her white blood cell count has not elevated. She is requesting to leave at this point time. She is afebrile, normotensive and not tachycardic. The patient is requesting to leave on my interview, given that she is hemodynamically stable at this point time, I am okay with this. I discussed at length strict return precautions of chest pain, shortness of breath worsening or any acute concerns. Encouraged patient to follow up with primary care provider soon as possible. Encourage continued mzov-uam-prhvspu medications as needed and able. The patient states she feels much improved compared to yesterday and has no questions or concerns upon discharge <Tamara Starkey, DO - Last Filed: 04/23/19 19:29> Lab Data Lab Results 04/23/19 04/23/19 Range/Units 13:42 13:42 WBC 8.1 (4.5-11.0) X10^3/uL RBC 5.05 (4.0-5.2) X10^6/uL Hgb 14.9 (12.0-16.0) g/dL Hct 43.8 (36-46) % MCV 86.6 (80-100) fL MCH 29.6 (26-34) PG MCHC 34.2 (30-36) % RDW 13.5 (11.6-14.8) % Plt Count 381 (150-400) X10^3/uL Neut % (Auto) 73.8 (50-75) % Lymph % (Auto) 16.1 L (25-40) % [place] % (Auto) 9.0 (3-14) % Eos % (Auto) 0.5 L (2-4) % Baso % (Auto) 0.6 (0-2) % Neut # (Auto) 6000 (9963-8007) /uL Lymph # (Auto) 1300 (9129-6903) /uL [place] # (Auto) 700 (0-900) /uL Eos # (Auto) 0 (0-450) /uL Baso # (Auto) 0 (0-100) /uL Sodium 137 (137-145) mmol/L Potassium 3.9 (3.4-5.1) mmol/L Chloride 100 (98-107) mmol/L Carbon Dioxide 28 (22-32) mmol/L BUN 16 (7-17) mg/dL Creatinine 0.90 (0.52-1.04) mg/dL Estimated GFR > 60.0 (>60) mL/min BUN/Creatinine Ratio 17.8 (6-22) Glucose 103 (80-110) mg/dL Calcium 9.3 (8.4-10.2) mg/dL Total Bilirubin 0.6 (0.2-1.3) mg/dL AST 30 (14-36) IU/L ALT 23 (9-52) IU/L Alkaline Phosphatase 87 (38-126) U/L Total Protein 8.0 (6.3-8.2) g/dL Albumin 4.4 (3.5-5.0) g/dL Globulin 3.6 (1.7-4.1) g/dL Albumin/Globulin Ratio 1.2 (1.0-2.8) Discharge Plan Departure Patient Disposition: Home Clinical Impression: Cough Discharge Date/Time: 04/23/19 14:42 Interventions: ED Discharge Assessment Last Done: 04/23/19 14:42 Instructions: DI for Cough -- Adult Activity Restrictions/Additional Instructions: Your basic lab work came back normal today. Your chest x-ray from yesterday shows no pneumonia. Since you have requested to leave, we did not do a more thorough evaluation. Please be vigilant about coming back to the emergency department for any acute concerns such as chest pain, shortness of breath concern of heart attack or stroke. Please follow up with your primary care provider soon as possible. Prescriptions: No Action cholecalciferol (vitamin D3) 50,000 unit capsule 50,000 unit PO QWEEK Qty: 8 RF: 0 Referrals: Ursula Hicks DO [Primary Care Provider] - <Tamara Starkey DO - Last Filed: 04/23/19 19:29> Cosign ED Attending Cosignature Attestation: I was immediately available in the department for consultation, case was discussed. This documentation has been reviewed and I agree with assessment and plan. Supervised by Tamara Starkey DO
--- NOTE | 2019-04-23 14:36 | ED_ITS ---
HPI - URI/Sore Throat <DEBORAH Luna - Last Filed: 04/23/19 14:36> General Chief Complaint: Upper Respiratory Symptoms Stated Complaint: 'RESPITORY STUFF' Time Seen by Provider: 04/23/19 13:43 Source: patient Mode of arrival: ambulatory Limitations: no limitations History of Present Illness HPI Narrative: The patient is a 63-year-old female nonsmoker with history of sepsis and pneumonia who presents with a chief complaint of a cough. She was evaluated at a walk-in clinic yesterday and had a negative chest x-ray. She states her cough is keeping her up at night. She denies any fevers. Denies any vomiting diarrhea or abdominal pain. She denies any chest pain. She stated she was short of breath earlier, but no longer is. Upon my interview the patient states that she would like to leave as she feels much improved after a nap. She states her cough is much improved. She states she is not eating as much earlier, but is hungry now. She complains of a headache and neck pain that was improved with slbd-zid-rgldysl medications. Upon my interview the patient is requesting to leave. Related Data Previous Rx's Medication Instructions Recorded cholecalciferol (vitamin D3) 50,000 unit PO QWEEK #8 cap 03/26/19 50,000 unit capsule Allergies Allergy/AdvReac Type Severity Reaction Status Date / Time venom-honey bee Allergy Severe swelling, Verified 02/26/19 19:14 [BEE VENOM (HONEY BEE)] redness, shortness of breath Penicillins [PENICILLINS] Allergy Mild RASH Verified 02/26/19 19:14 Review of Systems <DEBORAH Luna - Last Filed: 04/23/19 14:36> Review of Systems GENERAL: Denies chills, fatigue, malaise, fever, sweats. HEENT: Denies sinus pain, ear pain, sore throat, difficulty swallowing, dizziness. RESPIRATORY: See HPI CARDIOVASCULAR: Denies chest pain, palpitations, orthopnea, edema, GASTROINTESTINAL: Denies nausea, vomiting, abdominal pain, diarrhea, constipation, melena. : Denies dysuria, frequency, incontinence, hematuria, urinary retention. MUSCULOSKELETAL: denies weakness, joint pain, or bony pain SKIN: Denies rash, skin lesions, or other NEUROLOGIC: Denies weakness, headache, numbness, change in speech, confusion, seizures, incoordination. PSYCHIATRIC: No concerning psychosocial issues. 12 point review of systems is negative except for those stated above PFSH <DEBORAH Luna - Last Filed: 04/23/19 14:36> Medical History History of malignant neoplasm of female breast Osteopenia (Chronic 05/15/16) Surgical History History of bunionectomy of right great toe (Acute) History of lumpectomy of left breast (Acute) Family History (Updated 05/15/16 @ 00:00 by Ursula Hicks DO) Father Osteoarthritis, unspecified osteoarthritis type, unspecified site Social History household members: none Smoking Status: Never smoker alcohol intake: current Family History Father Osteoarthritis, unspecified osteoarthritis type, unspecified site Social History household members: none Smoking Status: Never smoker alcohol intake: current Exam <DEBORAH Luna - Last Filed: 04/23/19 14:36> Narrative Exam Narrative: GENERAL: thin elderly female no acute distress wearing mass HEAD: Atraumatic. Normocephalic. No temporal or scalp tenderness. EYES: Pupils equal round and reactive. Extraocular motions intact. No scleral ic terus. No injection or drainage. ENT: Nose without bleeding, purulent drainage or septal hematoma. Throat without erythema, tonsillar hypertrophy or exudate. Uvula midline. Airway patent. NECK: Trachea midline. No JVD or lymphadenopathy. Supple, nontender, no meningeal signs. CARDIOVASCULAR: Regular rate and rhythm RESPIRATORY: Clear to auscultation. Breath sounds equal bilaterally. No wheezes, rales, or rhonchi. Dry cough on exam. No retractions. No accessory muscle use. No stridor. GASTROINTESTINAL: Abdomen soft, non-tender, nondistended. No hepato- splenomegaly, or palpable masses. No guarding. Active bowel sounds. EXTREMITIES: No clubbing, cyanosis, or edema. No joint tenderness, effusion, or edema noted. BACK: Nontender without deformity or crepitance. No flank tenderness. NEURO: AOx3. SKIN: No rash or erythema. Initial Vital Signs Initial Vital Signs: Vital Signs Temperature 98.0 F 04/23/19 10:42 Pulse Rate 77 04/23/19 10:42 Respiratory Rate 18 04/23/19 10:42 Blood Pressure 98/68 04/23/19 10:42 Pulse Oximetry 94 04/23/19 10:42 <Tamara Starkey DO - Last Filed: 04/23/19 19:29> Initial Vital Signs Initial Vital Signs: Vital Signs Temperature 98.0 F 04/23/19 10:42 Pulse Rate 77 04/23/19 10:42 Respiratory Rate 18 04/23/19 10:42 Blood Pressure 98/68 04/23/19 10:42 Pulse Oximetry 94 04/23/19 10:42 Course <DEBORAH Luna - Last Filed: 04/23/19 14:36> Orders Ordered: ED Orders 04/23/19 13:42 Complete Blood Count AUTO DIFF Stat Comprehensive Metabolic Panel Stat Vital Signs - 8 hr 04/23/19 11:30 Pulse Rate 66 Respiratory Rate 16 Blood Pressure [Right Arm] 105/68 Pulse Oximetry 96 <DO Nayana Garduno Last Filed: 04/23/19 19:29> Orders Ordered: ED Orders 04/23/19 13:42 Complete Blood Count AUTO DIFF Stat Comprehensive Metabolic Panel Stat Vital Signs - 8 hr 04/23/19 11:30 Pulse Rate 66 Respiratory Rate 16 Blood Pressure [Right Arm] 105/68 Pulse Oximetry 96 MDM - URI/Sore Throat <DEBORAH Luna - Last Filed: 04/23/19 14:36> Lab Data Result diagrams: 04/23/19 13:42 04/23/19 13:42 Lab Results 04/23/19 04/23/19 Range/Units 13:42 13:42 WBC 8.1 (4.5-11.0) X10^3/uL RBC 5.05 (4.0-5.2) X10^6/uL Hgb 14.9 (12.0-16.0) g/dL Hct 43.8 (36-46) % MCV 86.6 (80-100) fL MCH 29.6 (26-34) PG MCHC 34.2 (30-36) % RDW 13.5 (11.6-14.8) % Plt Count 381 (150-400) X10^3/uL Neut % (Auto) 73.8 (50-75) % Lymph % (Auto) 16.1 L (25-40) % Randall % (Auto) 9.0 (3-14) % Eos % (Auto) 0.5 L (2-4) % Baso % (Auto) 0.6 (0-2) % Neut # (Auto) 6000 (1110-6309) /uL Lymph # (Auto) 1300 (9696-9355) /uL Randall # (Auto) 700 (0-900) /uL Eos # (Auto) 0 (0-450) /uL Baso # (Auto) 0 (0-100) /uL Sodium 137 (137-145) mmol/L Potassium 3.9 (3.4-5.1) mmol/L Chloride 100 (98-107) mmol/L Carbon Dioxide 28 (22-32) mmol/L BUN 16 (7-17) mg/dL Creatinine 0.90 (0.52-1.04) mg/dL Estimated GFR > 60.0 (>60) mL/min BUN/Creatinine Ratio 17.8 (6-22) Glucose 103 (80-110) mg/dL Calcium 9.3 (8.4-10.2) mg/dL Total Bilirubin 0.6 (0.2-1.3) mg/dL AST 30 (14-36) IU/L ALT 23 (9-52) IU/L Alkaline Phosphatase 87 (38-126) U/L Total Protein 8.0 (6.3-8.2) g/dL Albumin 4.4 (3.5-5.0) g/dL Globulin 3.6 (1.7-4.1) g/dL Albumin/Globulin Ratio 1.2 (1.0-2.8) Imaging Data Chest x-ray: Radiologist's impression: [address] [address] XRay Report Signed Patient: Meri Coates [facility]#: [id number] : 4Acct:[id number] Age/Sex: 63 / FDate of Service: 04/22/19 Loc: DI Accession Number: [id number] Procedure: XR chest 2V Ordering Provider: Monalisa Rubin P.A-C PROCEDURE: XR CHEST 2V INDICATIONS: Pneumonia concerns TECHNIQUE: 2 views of the chest were acquired. COMPARISON: [facility], CR, XR CHEST 2V, 02/28/2019, 9:20. [facility], CR, XR CHEST 2V, 03/28/2019, 11:53. FINDINGS: Surgical changes and devices: Multiple surgical clips project over the left chest. Lungs and pleura: Lungs are clear. Previously noted posterior left basilar opacities have resolved. No pleural effusions or pneumothorax. Mediastinum: Mediastinal contours are normal. Heart size is normal. Bones and chest wall: No suspicious bony abnormalities. Soft tissues appear unremarkable. IMPRESSION: Chest without acute cardiopulmonary abnormalities. No focal consolidations. Dictated by: Frantz Contreras M.D. on 04/22/2019 at 20:19 Approved by: Frantz Contreras M.D. on 04/22/2019 at 20:20 MDM Narrative Medical decision making narrative: The patient is a 63 year ld female with a cough. She has a normal chest x-ray from yesterday. Her white blood cell count has not elevated. She is requesting to leave at this point time. She is afebrile, normotensive and not tachycardic. The patient is requesting to leave on my interview, given that she is hemodynamically stable at this point time, I am okay with this. I discussed at length strict return precautions of chest pain, shortness of breath worsening or any acute concerns. Encouraged patient to follow up with primary care provider soon as possible. Encourage continued pxeu-jzb-gvylhdf medications as needed and able. The patient states she feels much improved compared to yesterday and has no questions or concerns upon discharge <Tamara Starkey, DO - Last Filed: 04/23/19 19:29> Lab Data Lab Results 04/23/19 04/23/19 Range/Units 13:42 13:42 WBC 8.1 (4.5-11.0) X10^3/uL RBC 5.05 (4.0-5.2) X10^6/uL Hgb 14.9 (12.0-16.0) g/dL Hct 43.8 (36-46) % MCV 86.6 (80-100) fL MCH 29.6 (26-34) PG MCHC 34.2 (30-36) % RDW 13.5 (11.6-14.8) % Plt Count 381 (150-400) X10^3/uL Neut % (Auto) 73.8 (50-75) % Lymph % (Auto) 16.1 L (25-40) % Randall % (Auto) 9.0 (3-14) % Eos % (Auto) 0.5 L (2-4) % Baso % (Auto) 0.6 (0-2) % Neut # (Auto) 6000 (5782-1525) /uL Lymph # (Auto) 1300 (3809-7757) /uL Randall # (Auto) 700 (0-900) /uL Eos # (Auto) 0 (0-450) /uL Baso # (Auto) 0 (0-100) /uL Sodium 137 (137-145) mmol/L Potassium 3.9 (3.4-5.1) mmol/L Chloride 100 (98-107) mmol/L Carbon Dioxide 28 (22-32) mmol/L BUN 16 (7-17) mg/dL Creatinine 0.90 (0.52-1.04) mg/dL Estimated GFR > 60.0 (>60) mL/min BUN/Creatinine Ratio 17.8 (6-22) Glucose 103 (80-110) mg/dL Calcium 9.3 (8.4-10.2) mg/dL Total Bilirubin 0.6 (0.2-1.3) mg/dL AST 30 (14-36) IU/L ALT 23 (9-52) IU/L Alkaline Phosphatase 87 (38-126) U/L Total Protein 8.0 (6.3-8.2) g/dL Albumin 4.4 (3.5-5.0) g/dL Globulin 3.6 (1.7-4.1) g/dL Albumin/Globulin Ratio 1.2 (1.0-2.8) Discharge Plan Departure Patient Disposition: Home Clinical Impression: Cough Discharge Date/Time: 04/23/19 14:42 Interventions: ED Discharge Assessment Last Done: 04/23/19 14:42 Instructions: DI for Cough -- Adult Activity Restrictions/Additional Instructions: Your basic lab work came back normal today. Your chest x-ray from yesterday shows no pneumonia. Since you have requested to leave, we did not do a more thorough evaluation. Please be vigilant about coming back to the emergency department for any acute concerns such as chest pain, shortness of breath concern of heart attack or stroke. Please follow up with your primary care provider soon as possible. Prescriptions: No Action cholecalciferol (vitamin D3) 50,000 unit capsule 50,000 unit PO QWEEK Qty: 8 RF: 0 Referrals: Ursula Hicks DO [Primary Care Provider] - <Tamara Starkey DO - Last Filed: 04/23/19 19:29> Cosign ED Attending Cosignature Attestation: I was immediately available in the department for consultation, case was discussed. This documentation has been reviewed and I agree with assessment and plan. Supervised by Tamara Starkey DO
== END 2019-04-23 14:42 | disposition home or self-care (01) ==
PROVIDERS: Emergency Medicine; Emergency Provider Nurse Practitioner Family; PCP Family Medicine
DX: R05 Cough (principal)
CPT/HCPCS: 36415; 80053; 85025; 99282; 99283

== ENCOUNTER → 2019-09-02 11:33 | Outpatient (CLI) | payer OTHER, SELFPAY ==
[2019-02-26 21:34] VITALS: BMI 22.6
[2019-09-02 14:36] LABS: Urine Chlamydia NOT DETECTED; Urine N gonorrhoeae NOT DETECTED
[2019-09-02 15:40] LABS: HIV 1 & 2 Ab/Ag 4th Gen Combo NEGATIVE (NEGATIVE)
[2019-09-04 15:36] LABS: RPR Screen Nonreactive (Nonreactive)
[2019-09-06 14:21] LABS: HSV 1 IgM Screen Negative (Negative); HSV 2 IgM Screen Negative (Negative)
== END ==
PROVIDERS: PCP Family Medicine; Visit Provider Nurse Practitioner Family
DX: Z20.2 Contact with and (suspected) exposure to infections with a predominantly sexual mode of transmission (principal); N89.8 Other specified noninflammatory disorders of vagina
CPT/HCPCS: 36415; 86592; 86695; 86696; 87210; 87389; 87491; 87591

== ENCOUNTER → 2019-09-02 11:34 | Outpatient (CLI) | payer OTHER, SELFPAY ==
[2019-02-26 21:34] VITALS: BMI 22.6
== END ==
PROVIDERS: PCP Family Medicine; Visit Provider Nurse Practitioner Family
DX: N89.8 Other specified noninflammatory disorders of vagina (principal)
CPT/HCPCS: 87210

== ENCOUNTER → 2020-07-21 08:10 | Outpatient (CLI) | payer MEDICARE, SELFPAY ==
[2019-02-26 21:34] VITALS: BMI 22.6
[2020-07-21 10:14] LABS: Alanine Aminotransferase 32 IU/L (<35); Albumin 4.4 g/dL (3.5-5.0); Albumin Globulin Ratio 1.6 (1.0-2.8); Alkaline Phosphatase 76 U/L (38-126); Aspartate Aminotransferase 33 IU/L (14-36); BUN Creatinine Ratio 24.2 (6-22); Bilirubin Total 0.8 mg/dL (0.2-1.3); Blood Urea Nitrogen 16 mg/dL (7-17); Calcium 9.4 mg/dL (8.4-10.2); Carbon Dioxide 29 mmol/L (22-32); Chloride 105 mmol/L (98-107); Cholesterol 214 mg/dL (140-199); Estimated Glomerular Filt Rate > 60.0 mL/min (>60); Globulin 2.8 g/dL (1.7-4.1); Glucose 95 mg/dL (80-110); HDL Cholesterol 102 mg/dL (40-60); HEMOLYSIS < 15 (0-50); LDL Cholesterol Calculated 88 mg/dL (<100); Potassium 4.2 mmol/L (3.4-5.1); Sodium 138 mmol/L (137-145); Total Protein 7.2 g/dL (6.3-8.2); Triglycerides 120 mg/dL (35-150)
[2020-07-21 10:26] LABS: Vitamin D 25 Hydroxy (D3) 28.8 ng/mL (30.0-100.0)
== END ==
PROVIDERS: PCP Family Medicine; Referring Provider Family Medicine; Visit Provider Family Medicine
DX: E78.5 Hyperlipidemia, unspecified (principal); M25.80 Other specified joint disorders, unspecified joint
CPT/HCPCS: 36415; 80053; 80061; 82306

== ENCOUNTER → 2020-08-30 10:06 | Outpatient (CLI) | payer MEDICARE, SELFPAY ==
[2019-02-26 21:34] VITALS: BMI 22.6
--- NOTE | 2020-08-30 10:07 | DI.MG.S_ITS ---
BILATERAL DIGITAL SCREENING MAMMOGRAM 3D/2D WITH CAD POST LUMPECTOMY: 08/30/2020 CLINICAL: Routine screening. Personal history of right breast cancer. Family history of breast cancer. Comparison is made to exams dated: 03/12/2018 mammogram - [facility], 11/08/2015 mammogram, 04/29/2013 mammogram - [facility], 11/04/2018 mammogram - [facility], and 05/09/2011 mammogram - [facility]. There are scattered fibroglandular elements in both breasts. Current study was also evaluated with a Computer Aided Detection (CAD) system. There are benign post operative findings in the left breast. No significant masses, calcifications, or other findings are seen in either breast. There has been no significant interval change. IMPRESSION: BENIGN There is no mammographic evidence of malignancy. A 1 year screening mammogram is recommended. This exam was interpreted at Station ID: [id number]. NOTE: For mammograms, a report in lay terms will be sent to the patient. Approximately 15% of breast malignancies will not be visualized mammographically. In the management of a palpable breast mass, a negative mammogram must not discourage biopsy of a clinically suspicious lesion. Electronically Signed By: Kavon cardenas/niya:08/31/2020 11:09:17 letter sent: Normal Exam ACR BI-RADS Category 2: Benign Finding(s) 3342F
--- NOTE | 2020-08-30 10:07 | DI.RAD.S_ITS ---
PROCEDURE: XR DEXA AXIAL SKELETON INDICATIONS: Osteopenia COMPARISON: None. FINDINGS: This blank DEXA report has been sent in error by the PACS system. The correct and complete report will be forthcoming in 1-2 days. Thank you for your patience and understanding. Dictated by: Mani Jean M.D. on 08/30/2020 at 14:25 Approved by: Mani Jean M.D. on 08/30/2020 at 14:25
== END ==
PROVIDERS: PCP Family Medicine; Referring Provider Family Medicine; Visit Provider Family Medicine
DX: Z12.31 Encounter for screening mammogram for malignant neoplasm of breast (principal); Z85.3 Personal history of malignant neoplasm of breast; Z80.3 Family history of malignant neoplasm of breast; M85.88 Other specified disorders of bone density and structure, other site; Z78.0 Asymptomatic menopausal state
CPT/HCPCS: 77063; 77067; 77080

== ENCOUNTER → 2020-09-03 14:04 | Outpatient (CLI) | payer MEDICARE, SELFPAY ==
[2019-02-26 21:34] VITALS: BMI 22.6
[2020-09-05 13:14] LABS: COVID19 Sendout Not Detected
== END ==
PROVIDERS: PCP Family Medicine; Visit Provider Physician Assistant
DX: Z01.812 Encounter for preprocedural laboratory examination (principal)
CPT/HCPCS: 87635

== ENCOUNTER 2020-09-06 08:09 | Day surgery (SDC) | payer MEDICARE, SELFPAY ==
[2019-02-26 21:34] VITALS: BMI 22.6
[2020-09-06 08:30] VITALS: BP 130/81; PULSE 81; RESP 18; TEMP 37.7; O2SAT 97; BMI 20.2
[2020-09-06] MEDS: LACTATED RINGERS 1,000 ML 200 ML IV (08:30)
--- NOTE | 2020-09-06 09:02 | PM.HP.1 ---
History of Present Illness History of Present Illness Date Patient Seen: 09/06/20 Time Patient Seen: 09:02 Chief complaint: SDC Narrative: The patient presents for colorectal sreening. There previously normal colonoscopy 10 years.. No personal or family history of colon cancer. On further history denies any recent gastrointestinal symptoms. No nausea, vomiting, abdominal pain, loss of appetite, unexplained weight loss, change in bowel habits, diarrhea, constipation, melena, hematochezia, or bright red blood per rectum. Patient History Medical History History of malignant neoplasm of female breast Influenza A (Inactive) Osteopenia (Chronic 05/15/16) Sepsis (Inactive) Surgical History History of bunionectomy of right great toe (Acute) History of lumpectomy of left breast (Acute) Family & Social History Family History Father Osteoarthritis, unspecified osteoarthritis type, unspecified site Social History: household members none Tobacco & Substance use: Smoking Status Never smoker alcohol intake current alcohol intake frequency holiday/special occasion Substance Use Type does not use Meds Home Medications and Allergies Home Medications Medication Instructions Recorded Confirmed Type Calcium 500 With D 1 tab PO BID 09/06/20 09/06/20 History Allergies Allergy/AdvReac Type Severity Reaction Status Date / Time venom-honey bee Allergy Severe swelling, Verified 09/06/20 08:28 [BEE VENOM (HONEY BEE)] redness, shortness of breath Penicillins [PENICILLINS] Allergy Mild RASH Verified 09/06/20 08:28 Review of Systems Review of Systems Narrative: A 10 point review of systems is negative except as noted in the HPI Exam Vital Signs (past 8 hours): - 09/06/20 08:30 Temperature 99.8 F H Pulse Rate 81 Respiratory Rate 18 Blood Pressure 130/81 Pulse Oximetry 97 Oxygen Delivery Method Room Air Narrative Exam Narrative: General-no acute distress, thin elderly woman HEENT-moist mucous membranes, no scleral icterus Neck-supple, no lymphadenopathy Chest- non labored respirations, clear to auscultation bilaterally Cardiac-regular rate no peripheral edema Abdomen-soft, nontender, non distended Extremities-warm, well perfused Neurological-alert and oriented, no focal deficits Assessment & Plan Assessment & Plan narrative: The patient requires colorectal screening and colonoscopy is recommended. Technical details were discussed. Risks, benefits, alternatives explained. Risks including but not limited to myocardial infarction, aspiration, bleeding, pain, missed lesion, incomplete examination, need for further radiographic studies, colonic perforation, and need for major abdominal surgery were discussed. All questions were answered to their satisfaction, and they are in agreement with this plan.
[2020-09-06] MEDS: fentaNYL 250 MCG/5 ML INJ IV (09:13)
[2020-09-06] MEDS: MIDAZOLAM 5 MG/5 ML VIAL IV (09:13)
--- NOTE | 2020-09-06 09:39 | PM.OP.ENDO ---
Operative Date/Time/Diagnoses Date of procedure: 09/06/20 Time of procedure: 09:39 Pre-op diagnosis: Screening colonoscopy Post-op diagnosis: same Procedure & Clinicians Study performed: Colonoscopy Same procedure as scheduled: Yes Indications: 64-year-old woman last colonoscopy 10 years ago normal here for routine screening Surgeon: Reginaldo Patricia Procedure Notes SCOAP/Timeout: Performed Procedure in detail: Patient placed in left lateral recumbent position. Time out was performed. Procedural sedation was administered with Versed and Fentanyl. Examination began with a thorough inspection of the perianal area there was no evidence of fissures, fistulae, external hemorrhoids or cutaneous malignancy. The colonoscopy scope was then placed into the rectum the the lumen was insufflated with air. The scope was carefully advanced forward. The sigmoid colon was extremely tortuous and requiring the scope stiffener and patient to be placed on to her back in order to advance forward. Ultimately the cecum was intubated and confirmed by identification of the ileocecal valve, the appendiceal orifice and the confluence of the taenia. The scope was then slowly withdrawn examining colon thoroughly in all directions. In the rectum the rectal columns were identified and retroflexion of the scope was performed for inspection of the distal rectum and anal canal. The colonoscopy was notable for the followin. Quality of the preparation-excellent 2. No masses or polyps 3. Tortuous sigmoid colon Scope withdrawal time: 6 Sedation minutes: 30 Specimen(s): none sent Complications: none Impression: Normal colon Post-procedure Recommendations: Colonscopy in 10 years Disposition: same day surgery
[2020-09-06 09:42] VITALS: BP 131/79; PULSE 60; RESP 13; TEMP 36.6; O2SAT 98
[2020-09-06 09:47] VITALS: BP 131/79; PULSE 60; RESP 139; O2SAT 97
[2020-09-06 09:52] VITALS: BP 126/79; PULSE 61; RESP 12; O2SAT 97
[2020-09-06 10:02] VITALS: BP 135/81; PULSE 60; RESP 13; TEMP 36.6; O2SAT 98
== END 2020-09-06 10:17 | disposition home or self-care (01) ==
PROVIDERS: PCP Family Medicine; Referring Provider Family Medicine; Visit Provider Surgery
PROC: 0DJD8ZZ Inspection of Lower Intestinal Tract, Via Natural or Artificial Opening Endoscopic (ICD-10-PCS; CPT 45378; principal; 2020-09-06 09:15)
DX: Z12.11 Encounter for screening for malignant neoplasm of colon (principal)
CPT/HCPCS: G0121; 99152; 99153; J2250; J3010

== ENCOUNTER → 2020-09-21 15:35 | Outpatient (CLI) | payer MEDICARE, SELFPAY ==
[2019-02-26 21:34] VITALS: BMI 22.6
--- NOTE | 2020-09-21 16:56 | DI.US.S_ITS ---
PROCEDURE: US SOFT TISSUE HEAD AND NECK INDICATIONS: soft tissue mass in right supraclavicular fossa TECHNIQUE: Real-time scanning was performed of the neck region of interest, with image documentation. COMPARISON: None. FINDINGS: Targeted ultrasound of the right neck at the palpable abnormality demonstrates a small superficial vein measuring at 5 mm in diameter and 1 cm in with. There is expected blood flow. No thrombus. No enlarged adenopathy. No fluid collection. IMPRESSION: Palpable abnormality in the right neck corresponds to a prominent superficial patent vein. Dictated by: Kavon Knott M.D. on 09/21/2020 at 17:29 Approved by: Kavon Knott M.D. on 09/21/2020 at 17:31
== END ==
PROVIDERS: PCP Family Medicine; Referring Provider Family Medicine; Visit Provider Family Medicine
DX: Q79.8 Other congenital malformations of musculoskeletal system (principal)
CPT/HCPCS: 76536

== ENCOUNTER → 2020-12-15 08:49 | Outpatient (CLI) | payer MEDICARE, SELFPAY ==
[2019-02-26 21:34] VITALS: BMI 22.6
[2020-12-16 09:04] LABS: RPR Screen Non Reactive (Non Reactive)
[2020-12-16 12:45] LABS: HSV 2 IGG AB 2.17 index (0.00-0.90)
[2020-12-16 18:18] LABS: Hepatitis B Surface Antigen NEGATIVE s/c (NEGATIVE)
[2020-12-16 18:36] LABS: HIV 1 & 2 Ab/Ag 4th Gen Combo NEGATIVE (NEGATIVE); Hep C Virus Ab w/Reflex Quant NEGATIVE s/c (NEGATIVE)
[2020-12-18 10:08] LABS: Chlamydia trachomatis Negative (Negative); Mycoplasma genitalium Negative (Negative); Neisseria gonorrhoeae Negative (Negative)
== END ==
PROVIDERS: Specialist; PCP Family Medicine; Referring Provider Family Medicine; Visit Provider Family Medicine
DX: Z20.2 Contact with and (suspected) exposure to infections with a predominantly sexual mode of transmission (principal); Z11.3 Encounter for screening for infections with a predominantly sexual mode of transmission
CPT/HCPCS: 36415; 86592; 86695; 86696; 86803; 87340; 87389; 87491; 87591

== ENCOUNTER → 2021-04-09 11:16 | Outpatient (CLI) | payer MEDICARE, SELFPAY ==
[2019-02-26 21:34] VITALS: BMI 22.6
--- NOTE | 2021-04-09 11:17 | DI.MRI.S_ITS ---
PROCEDURE: MR HEAD/BRAIN WO CON INDICATIONS: tremor TECHNIQUE: Non-contrast axial T1 spin echo, axial T2 fast spin echo, sagittal and axial FLAIR, coronal T2 fast spin echo, axial gradient echo, axial diffusion and ADC through the brain. COMPARISON: None. FINDINGS: Image quality: Excellent. CSF spaces: Ventricles appear symmetric in size and shape. Basal cisterns are patent. No extra-axial fluid collections. Brain: Scattered nonspecific small and punctate T2 signal abnormalities in the cerebral hemispheric white matter bilaterally, most likely chronic microvascular ischemic disease although there are other differential considerations (see discussion below). Mild global cerebral volume loss. No abnormal intracranial susceptibility. The major intracranial vascular flow-related signal voids are maintained. No restricted diffusion to indicate recent ischemia. Midline structures are within normal limits. Skull and face: Calvarial bone marrow is normal in signal. Orbits are normal. Sinuses: Sinuses and mastoids are clear. IMPRESSION: Numerous scattered nonspecific small and punctate areas of T2 signal elevation within the cerebral hemispheric white matter bilaterally. These most likely reflect moderate chronic microvascular ischemic change, although a demyelinating disorder could appear similar. Mild global cerebral volume loss. Dictated by: Orlando Pacheco M.D. on 04/11/2021 at 8:32 Approved by: Orlando Pacheco M.D. on 04/11/2021 at 8:34
== END ==
PROVIDERS: PCP Family Medicine; Referring Provider Family Medicine; Visit Provider Family Medicine
DX: R25.1 Tremor, unspecified (principal)
CPT/HCPCS: 70551